=== PATIENT | male | born 1950 | race American Indian/Alaskan Native ===

== ENCOUNTER 2016-11-13 11:07 | Inpatient (IN) | payer MEDICARE ==
[2016-11-13 13:13] LABS: Basophils % (Auto) 0.3 % (0.0-1.8); Eosinophils % (Auto) 0.9 % (0.0-4.3); Mean Corpuscular HGB Conc 31 % (32-34); Mean Corpuscular Volume 81 fl (84-94); Platelet Count 186 K/mm3 (140-440); Red Blood Count 4.94 M/mm3 (3.65-5.03); Red Cell Distribution Width 15.2 % (13.2-15.2)
[2016-11-13 13:17] LABS: Hematocrit 40.1 % (35.5-45.6); Hemoglobin 12.2 gm/dl (11.8-15.2)
[2016-11-13 13:18] LABS: Mean Corpuscular Hemoglobin 25 pg (28-32)
--- NOTE | 2016-11-13 13:21 | XRay Report ---
CHEST X-RAY, 2 VIEWS History: Shortness of breath. Findings: There is mild cardiomegaly, mild pulmonary venous congestion and moderate bilateral pleural effusions. Compressive atelectasis is noted at the lung bases. The upper lung zones are clear. 3-lead cardiac device is in position. Impression: CHF.
[2016-11-13 13:23] LABS: INR 2.2 (0.87-1.13)
[2016-11-13 13:24] LABS: Partial Thromboplastin Time 36.6 Sec. (24.2-36.6)
[2016-11-13 13:25] LABS: Anion Gap 15 mmol/L; BUN/Creatinine Ratio 13.33; Blood Urea Nitrogen 12 mg/dL (9-20); Calcium 8.1 mg/dL (8.4-10.2); Carbon Dioxide 28 mmol/L (22-30); Chloride 101.7 mmol/L (98-107); Glucose 121 mg/dL (75-100); Potassium 4.6 mmol/L (3.6-5.0); Sodium 140 mmol/L (137-145)
[2016-11-13 13:27] LABS: Creatine Kinase MB 4.3 ng/mL (0.0-4.0)
[2016-11-13 13:28] LABS: Creatine Kinase 194 units/L (55-170)
[2016-11-13] MEDS ORDERED: LASIX IV ONE (16:10)
--- NOTE | 2016-11-13 16:40 | Admit Criteria Form ---
Admission Criteria Documentation: HEART FAILURE: COMMON COMPLICATIONS Clinical Indications for Inpatient Care (Place 'X' for any and all applicable criteria): Ongoing inpatient care may be indicated for heart failure with ANY ONE of the following (1)(2)(3)(4)(5): [ ]I. Ongoing need for care for primary condition requiring frequent therapy adjustments because of changes in cardiac function (eg, drug dosage changes for drugs that are renally metabolized) [ ]II. New-onset heart failure [ ]III. Heart failure with decreased urine output not responsive to attempts to optimize volume status [ ]IV. Acute cardiac ischemia causing or associated with failure [ X]V. Complications of heart failure, including ANY ONE of the following: [ ]a) Pericardial effusion [ ]b) Symptomatic pleural effusion [ ]c) O2 saturation <90% or PO2 < 60 mm Hg (8.0 kPa) on room air or require baseline supplemental O2 [X ]d) Tachypnea [ ]e) Dyspnea [ ]f) Syncope [ ]g) Change in mental status [ ]h) Acute renal insufficiency that is severe (reduction of more than 50% in estimated glomerular filtration rate from baseline) or progressive reduction of more than 25% in estimated glomerular filtration rate from baseline, with creatinine continuing to rise) [ ]i) Hemodynamic instability [ ]j) Anasarca [ ]k) Clinically significant metabolic abnormalities due to heart failure (eg, new-onset metabolic acidosis) Extended stay beyond goal length of stay for primary condition may be needed until ALL of the following are present(1)(3): [ ]a) Stable and effective diuretic regimen established (or patient on stable dialysis regimen if in chronic renal failure) [ ]b) Breathing comfortably at rest [ ]c) Saturation of arterial oxygen greater than 90% or at acceptable baseline [ ]d) Pulmonary edema absent or improved [ ]e) Hemodynamic stability [ ]f) Volume status acceptable on oral medication [ ]g) Peripheral or sacral edema absent or improved [ ]h) Renal function stable and manageable at a lower level of care [ ]i) Complications (eg, pleural effusion) resolved or manageable at a lower level of care [ ]j) Patient or caregiver has received written discharge instructions or educational material addressing activity level, diet, discharge medications, follow-up appointment, weight monitoring, and what to do if symptoms worsen The original [employer] content created by [employer] has been revised. The portions of the content which have been revised are identified through the use of italic text or in bold, and [facility] has neither reviewed nor approved the modified material.All other unmodified content is copyright [facility]. Please see references footnoted in the original [facility] edition 2016 Admission Criteria Met: Yes
--- NOTE | 2016-11-13 18:20 | Event Note ---
Date: 11/13/16 See H/p in reports GI Bleed=lower CHF exacerbation Afib HTN Hep C Glaucoma
[2016-11-13] MEDS ORDERED: ZOFRAN IV PRN (18:25)
[2016-11-13] MEDS ORDERED: DULCOLAX PR PRN (18:25)
[2016-11-13] MEDS ORDERED: TYLENOL PO PRN (18:25)
[2016-11-13] MEDS ORDERED: MILK OF MAGNESIA PO PRN (18:25)
[2016-11-13 19:37] LABS: Basophils % (Auto) 0.4 % (0.0-1.8); Eosinophils % (Auto) 1.4 % (0.0-4.3); Hematocrit 41.5 % (35.5-45.6); Mean Corpuscular HGB Conc 31 % (32-34); Mean Corpuscular Volume 79 fl (84-94); Platelet Count 194 K/mm3 (140-440); Red Blood Count 5.24 M/mm3 (3.65-5.03); Red Cell Distribution Width 15.3 % (13.2-15.2); White Blood Count 4.9 K/mm3 (4.5-11.0)
[2016-11-13 19:46] LABS: Alanine Aminotransferase 15 units/L (7-56); Albumin/Globulin Ratio 0.8 %; Alkaline Phosphatase 72 units/L (35-129); Anion Gap 14 mmol/L; BUN/Creatinine Ratio 13.33; Bilirubin,Total 0.4 mg/dL (0.1-1.2); Blood Urea Nitrogen 12 mg/dL (9-20); Calcium 8.2 mg/dL (8.4-10.2); Carbon Dioxide 30 mmol/L (22-30); Chloride 94.9 mmol/L (98-107); Glucose 108 mg/dL (75-100); Potassium 3.9 mmol/L (3.6-5.0); Sodium 135 mmol/L (137-145); Total Protein 6.9 g/dL (6.3-8.2)
[2016-11-13 19:48] LABS: Mean Corpuscular Hemoglobin 25 pg (28-32)
[2016-11-14] MEDS: DILAUDID IV PRN ×3 (01:27→21:49)
[2016-11-14 07:29] LABS: Mean Corpuscular HGB Conc 30 % (32-34); Mean Corpuscular Volume 81 fl (84-94); Platelet Count 186 K/mm3 (140-440); Red Blood Count 5.05 M/mm3 (3.65-5.03); Red Cell Distribution Width 15.5 % (13.2-15.2); White Blood Count 4.8 K/mm3 (4.5-11.0)
[2016-11-14 07:39] LABS: Hematocrit 40.8 % (35.5-45.6); Hemoglobin 12.4 gm/dl (11.8-15.2); Mean Corpuscular Hemoglobin 24 pg (28-32)
[2016-11-14 07:54] LABS: Anion Gap 15 mmol/L; BUN/Creatinine Ratio 13.33; Blood Urea Nitrogen 12 mg/dL (9-20); Calcium 8.4 mg/dL (8.4-10.2); Carbon Dioxide 29 mmol/L (22-30); Chloride 100.6 mmol/L (98-107); Glucose 110 mg/dL (75-100); Potassium 4.5 mmol/L (3.6-5.0); Sodium 140 mmol/L (137-145)
[2016-11-14 08:32] LABS: Anisocytosis 1+; Basophils % (Manual) 0 % (0.0-1.8); Blastocytes % (Manual) 0 %; Diff Status Complete; Eosinophils % (Manual) 0 % (0.0-4.3); Ovalocytes Few; Polychromasia Few; Stomatocytes Rare
--- NOTE | 2016-11-14 11:26 | Consultation ---
History of Present Illness Consult date: 11/14/16 Consult reason: shortness of breath History of present illness: The patient is a 65-year-old man with an extensive cardiac history, who was seen in our office yesterday at which time he was noted with shortness of breath and hypoxemia with oxygen saturation of 86% on room air. Due to this finding, he was referred to the emergency room for further evaluation. Workup in the emergency room included a chest x-ray, which on my review this morning reveals a large right pleural effusion, with some upper lobe cephalization suggesting underlying mild interstitial edema and heart failure. The patient has a history of coronary artery disease, aortic valve disease and a predominantly nonischemic cardiomyopathy. He has a mechanical aortic valve replacement and Coumadin therapy. He has coronary stents placed in the circumflex system, and most recent cardiac catheterization done 2 years ago revealed diffuse small vessel and nonobstructive large vessel disease that was recommended for medical therapy. Most recent echocardiogram done 2 months ago revealed a severe cardiomyopathy, ejection fraction 25-30%, well-functioning mechanical aortic valve, and severe pulmonary hypertension with primary artery systolic pressure 83. He has an implanted internal cardiac defibrillator for primary prevention of sudden cardiac . At this time, the patient denies chest pain, denies palpitations, but does have mild lower extremity edema in association with his presenting shortness of breath. It was also reported that on review of systems he stated that he had dark stools. However this was in association with recent constipation. He denies hematemesis and denies Katie stools. Most significantly, his hematocrit on presentation has been stable at 40-42. Past History Past Medical History: CAD, heart failure Past Surgical History: valve replacement, PTCA Medications and Allergies Allergies Allergy/AdvReac Type Severity Reaction Status Date / Time gentamicin [Gentamicin] Allergy Rash Verified 11/17/15 17:11 Home Medications Medication Instructions Recorded Confirmed Last Taken Type Carvedilol [Coreg] 3.125 mg PO BID 07/29/13 11/13/16 08/31/16 History Esomeprazole Magnesium [NexIUM] 40 mg PO DAILY 01/02/14 11/13/16 1 Day Ago History Latanoprost 0.005 drop OD DAILY 01/02/14 11/13/16 1 Day Ago History Losartan [Cozaar] 25 mg PO QDAY 08/31/16 11/13/16 08/31/16 History Potassium Chloride [K-Dur] 10 meq PO QDAY 08/31/16 11/13/16 08/31/16 History Warfarin Sodium [Coumadin] 6 mg PO QDAY 08/31/16 11/13/16 08/30/16 History Furosemide [Lasix TAB] 80 mg PO QDAY 11/13/16 11/13/16 Unknown History Active Meds: Active Medications Acetaminophen (Tylenol) 650 mg PO Q4H PRN PRN Reason: Pain MILD(1-3)/Fever >100.5/[place] Bisacodyl (Dulcolax) 10 mg GA QDAY PRN PRN Reason: Constipation unrelieved by MOM Hydromorphone HCl (Dilaudid) 0.5 mg IV Q3H PRN PRN Reason: Pain , Severe (7-10) Last Admin: 11/14/16 01:27 Dose: 0.5 mg Influenza Virus Vaccine Quadrival (Fluarix Quad [id number](36 Mos+)) 60 mcg IM .ONCE ONE Stop: 11/15/16 12:01 Magnesium Hydroxide (Milk Of Magnesia) 30 ml PO Q4H PRN PRN Reason: Constipation Ondansetron HCl (Zofran) 4 mg IV Q8H PRN PRN Reason: N/V unrelieved by Reglan Pneumococcal Polyvalent Vaccine (Pneumovax 23) 0.5 ml IM .ONCE ONE Stop: 11/15/16 12:01 Review of Systems Cardiovascular: edema, shortness of breath, no chest pain, no orthopnea, no palpitations, no rapid/irregular heart beat, no syncope, no lightheadedness Physical Examination Vital Signs Temp Pulse Resp BP Pulse Ox 98.1 F 78 20 115/92 94 11/13/16 11:40 11/13/16 11:40 11/13/16 11:40 11/13/16 11:40 11/13/16 11:40 General appearance: no acute distress HEENT: Positive: PERRL Neck: Positive: neck supple Cardiac: Positive: Reg Rate and Rhythm Lungs: Positive: Decreased Breath Sounds Neuro: Positive: Grossly Intact Abdomen: Positive: Soft Male genitourinary: Positive: deferred Skin: Positive: Clear Extremities: Present: +1 Edema Results 11/14/16 06:29 11/14/16 06:29 Cardiac Enzymes 11/13/16 Range/Units 19:09 AST 32 (5-40) units/L CBC 11/13/16 11/14/16 Range/Units 19:09 06:29 WBC 4.9 4.8 (4.5-11.0) K/mm3 RBC 5.24 H 5.05 H (3.65-5.03) M/mm3 Hgb 13.0 12.4 (11.8-15.2) gm/dl Hct 41.5 40.8 (35.5-45.6) % Plt Count 194 186 (140-440) K/mm3 Lymph # 0.5 L (1.2-5.4) K/mm3 [place] # 0.6 (0.0-0.8) K/mm3 Eos # 0.1 (0.0-0.4) K/mm3 Baso # 0.0 (0.0-0.1) K/mm3 Comprehensive Metabolic Panel 11/13/16 11/14/16 Range/Units 19:09 06:29 Sodium 135 L 140 (137-145) mmol/L Potassium 3.9 4.5 (3.6-5.0) mmol/L Chloride 94.9 L 100.6 (98-107) mmol/L Carbon Dioxide 30 29 (22-30) mmol/L BUN 12 12 (9-20) mg/dL Creatinine 0.9 0.9 (0.8-1.5) mg/dL Glucose 108 H 110 H (75-100) mg/dL Calcium 8.2 L 8.4 (8.4-10.2) mg/dL AST 32 (5-40) units/L ALT 15 (7-56) units/L Alkaline Phosphatase 72 (35-129) units/L Total Protein 6.9 (6.3-8.2) g/dL Albumin 3.0 L (3.9-5) g/dL EKG interpretations Pacemaker: ventricular pacing w/capt Assessment and Plan - Patient Problems (1) Pleural effusion Current Visit: Yes Status: Acute Plan to address problem: Patient's main pathology at this time is severe large right pleural effusion, likely responsible for his shortness of breath and his hypoxemia on presentation. I recommend that he is seen by pulmonary medicine for further evaluation in case a thoracentesis is needed. (2) CHF exacerbation Current Visit: No Status: Acute Qualifiers: Congestive heart failure type: unspecified congestive heart failure type Qualified Code(s): I50.9 - Heart failure, unspecified Plan to address problem: We will continue medical management for acute on chronic systolic heart failure , with diuretics, Ruben inhibitors and optimal medical therapy. If indicated, will place the patient on a trial of IV inotropic therapy. (3) Mechanical heart valve present Current Visit: No Status: Acute Plan to address problem: The patient has a mechanical aortic valve, current INR is 2.2 on Coumadin. Coumadin should be continued without interruption, unless a thoracentesis is needed and indicates temporary stoppage. We will discuss with pulmonary at that point. (4) GI bleed Current Visit: Yes Status: Acute Qualifiers: GI bleed type/associated pathology: G Gastritis type: G Plan to address problem: I do not see any clinical evidence of GI bleeding in this patient. Although he reports dark stools, his hematocrit is stable at over 40. It will be prudent to first get a stool guaiac prior to any other workup for GI bleeding. I will continue his Coumadin therapy at this point without interruption until there is further evidence of bleeding.
[2016-11-14] MEDS ORDERED: NON-FORMULARY (Esomeprazole Magnesium [Nexium] 40 MG) PO SCH (12:00)
[2016-11-14] MEDS ORDERED: WARFARIN SODIUM 6 MG PO SCH (12:00)
[2016-11-14] MEDS: LASIX IV SCH (12:45)
[2016-11-14] MEDS: K-DUR PO SCH (12:45)
[2016-11-14] MEDS: COZAAR PO SCH ×2 (12:46→13:08)
[2016-11-14] MEDS: PROTONIX PO SCH (13:06)
[2016-11-14 14:16] LABS: INR 2.11 (0.87-1.13)
--- NOTE | 2016-11-14 14:40 | Consultation ---
History of Present Illness Consult date: 11/14/16 Requesting physician: MARTHA MADDEN Reason for consult: pleural effusion History of present illness: 65 y/o male with known systolic heart failure admitted with worsening dyspnea on exertion and hypoxemia. Referred from cardiology. Has a sat of 86% on room air. CXR shows bilateral pleural effusions worse than effusions from August. Pulmonary consulted for need of possible thoracentesis. Of note, patient on coumadin for aortic valve and is currently therapeutic on this. Past History Past Medical History: CAD, heart failure Past Surgical History: valve replacement, PTCA Medications and Allergies Allergies Allergy/AdvReac Type Severity Reaction Status Date / Time gentamicin [Gentamicin] Allergy Rash Verified 11/17/15 17:11 Home Medications Medication Instructions Recorded Confirmed Last Taken Type Carvedilol [Coreg] 3.125 mg PO BID 07/29/13 11/13/16 08/31/16 History Esomeprazole Magnesium [NexIUM] 40 mg PO DAILY 01/02/14 11/13/16 1 Day Ago History Latanoprost 0.005 drop OD DAILY 01/02/14 11/13/16 1 Day Ago History Losartan [Cozaar] 25 mg PO QDAY 08/31/16 11/13/16 08/31/16 History Potassium Chloride [K-Dur] 10 meq PO QDAY 08/31/16 11/13/16 08/31/16 History Warfarin Sodium [Coumadin] 6 mg PO QDAY 08/31/16 11/13/16 08/30/16 History Furosemide [Lasix TAB] 80 mg PO QDAY 11/13/16 11/13/16 Unknown History Active Meds: Active Medications Acetaminophen (Tylenol) 650 mg PO Q4H PRN PRN Reason: Pain MILD(1-3)/Fever >100.5/[place] Bisacodyl (Dulcolax) 10 mg CO QDAY PRN PRN Reason: Constipation unrelieved by MOM Furosemide (Lasix) 40 mg IV QDAY [facility] Last Admin: 11/14/16 12:45 Dose: 40 mg Hydromorphone HCl (Dilaudid) 0.5 mg IV Q3H PRN PRN Reason: Pain , Severe (7-10) Last Admin: 11/14/16 01:27 Dose: 0.5 mg Influenza Virus Vaccine Quadrival (Fluarix Quad [id number](36 Mos+)) 60 mcg IM .ONCE ONE Stop: 11/15/16 12:01 Latanoprost (Xalatan 0.005%) 1 drops OD QPM [facility] Losartan Potassium (Cozaar) 25 mg PO QDAY [facility] Last Admin: 11/14/16 13:08 Dose: Not Given Magnesium Hydroxide (Milk Of Magnesia) 30 ml PO Q4H PRN PRN Reason: Constipation Miscellaneous Medication (Warfarin Sodium [Coumadin]) 6 mg PO QDAY [facility] Ondansetron HCl (Zofran) 4 mg IV Q8H PRN PRN Reason: N/V unrelieved by Regrani Pantoprazole Sodium (Protonix) 40 mg PO DAILY [facility] Last Admin: 11/14/16 13:06 Dose: 40 mg Pneumococcal Polyvalent Vaccine (Pneumovax 23) 0.5 ml IM .ONCE ONE Stop: 11/15/16 12:01 Potassium Chloride (K-Dur) 10 meq PO QDAY [facility] Last Admin: 11/14/16 12:45 Dose: 10 meq Warfarin Sodium (Coumadin Pharmacy To Dose) 1 each PO PKCONSULT [facility] PRN Reason: Protocol Physical Examination Vital signs: Vital Signs Temp Pulse Resp BP Pulse Ox 98.1 F 78 20 115/92 94 11/13/16 11:40 11/13/16 11:40 11/13/16 11:40 11/13/16 11:40 11/13/16 11:40 Results - Laboratory Findings CBC and BMP: 11/14/16 06:29 11/14/16 06:29 PT/INR, D-dimer PT 23.7 Sec. (12.2-14.9) H 11/14/16 12:48 INR 2.11 (0.87-1.13) H 11/14/16 12:48 Abnormal lab findings: Abnormal Labs 11/13/16 11/13/16 11/14/16 19:09 19:09 06:29 RBC 5.24 H 5.05 H MCV 79 L 81 L MCH 25 L 24 L MCHC 31 L 30 L RDW 15.3 H 15.5 H Lymph % (Auto) 11.1 L [place] % (Auto) 12.6 H Lymph # 0.5 L Seg Neutrophils % 74.5 H Seg Neuts % (Manual) 78.0 H Lymphocytes % (Manual) 7.0 L Monocytes % (Manual) 13.0 H Lymphocytes # (Manual) 0.3 L PT INR Sodium 135 L Chloride 94.9 L Glucose 108 H Calcium 8.2 L Albumin 3.0 L 11/14/16 11/14/16 06:29 12:48 RBC MCV MCH MCHC RDW Lymph % (Auto) [place] % (Auto) Lymph # Seg Neutrophils % Seg Neuts % (Manual) Lymphocytes % (Manual) Monocytes % (Manual) Lymphocytes # (Manual) PT 23.7 H INR 2.11 H Sodium Chloride Glucose 110 H Calcium Albumin Assessment and Plan 65 y/o male with known systolic heart failure admitted with dyspnea on exertion and hypoxemia. 1. At this point, could perform thoracentesis but patient would need to be off coumadin. If the risks outweigh the benefits, will ask cardiology to change anticoagulation to something that is more short acting to give IR the time to perform the procedure. Ideally given the elevated BNP and known systolic heart failure, would attempt aggressive diuresis first to see if this helps with pleural effusions. Will discuss with Dr. Mdaden.
[2016-11-14] MEDS ORDERED: COUMADIN PO SCH (17:00)
--- NOTE | 2016-11-14 17:15 | Gastroenterology Consultation ---
History of Present Illness - Reason for Consult Consult date: 11/14/16 Rectal bleeding Requesting physician: GABY MADRIGAL - History of Present Illness Asked to evaluate this pleasant 65yo man for rectal bleeding. He is currently hospitalized with a CHF exacerbation. 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 He has an ICD in place as well. He mentions that his stools have been dark intermittently. He was seen in 05/2016 by my colleague, Dr. Marina Craft , who performed an EGD which revealed a superficial ulcer in the stomach. He mentions that he was taking Nexium. No current NSAID usage. Hb has been 12.2- 13.0 during this admission. Currently, he states that his stools are brown. No vomiting, abdominal pain, CP at this time. He attests to mild SOB. No other complaints. Past History Past Medical History: CAD, heart failure Past Surgical History: valve replacement, PTCA Social history: Family history: no significant family history Medications and Allergies Allergies Allergy/AdvReac Type Severity Reaction Status Date / Time gentamicin [Gentamicin] Allergy Rash Verified 11/17/15 17:11 Home Medications Medication Instructions Recorded Confirmed Last Taken Type Carvedilol [Coreg] 3.125 mg PO BID 07/29/13 11/13/16 08/31/16 History Esomeprazole Magnesium [NexIUM] 40 mg PO DAILY 01/02/14 11/13/16 1 Day Ago History Latanoprost 0.005 drop OD DAILY 01/02/14 11/13/16 1 Day Ago History Losartan [Cozaar] 25 mg PO QDAY 08/31/16 11/13/16 08/31/16 History Potassium Chloride [K-Dur] 10 meq PO QDAY 08/31/16 11/13/16 08/31/16 History Warfarin Sodium [Coumadin] 6 mg PO QDAY 08/31/16 11/13/16 08/30/16 History Furosemide [Lasix TAB] 80 mg PO QDAY 11/13/16 11/13/16 Unknown History Active Meds: Active Medications Acetaminophen (Tylenol) 650 mg PO Q4H PRN PRN Reason: Pain MILD(1-3)/Fever >100.5/[place] Bisacodyl (Dulcolax) 10 mg SD QDAY PRN PRN Reason: Constipation unrelieved by MOM Furosemide (Lasix) 40 mg IV QDAY [facility] Last Admin: 11/14/16 12:45 Dose: 40 mg Hydromorphone HCl (Dilaudid) 0.5 mg IV Q3H PRN PRN Reason: Pain , Severe (7-10) Last Admin: 11/14/16 15:22 Dose: 0.5 mg Influenza Virus Vaccine Quadrival (Fluarix Quad [id number](36 Mos+)) 60 mcg IM .ONCE ONE Stop: 11/15/16 12:01 Latanoprost (Xalatan 0.005%) 1 drops OD QPM [facility] Losartan Potassium (Cozaar) 25 mg PO QDAY [facility] Last Admin: 11/14/16 13:08 Dose: Not Given Magnesium Hydroxide (Milk Of Magnesia) 30 ml PO Q4H PRN PRN Reason: Constipation Ondansetron HCl (Zofran) 4 mg IV Q8H PRN PRN Reason: N/V unrelieved by Reglan Pantoprazole Sodium (Protonix) 40 mg PO DAILY [facility] Last Admin: 11/14/16 13:06 Dose: 40 mg Pneumococcal Polyvalent Vaccine (Pneumovax 23) 0.5 ml IM .ONCE ONE Stop: 11/15/16 12:01 Potassium Chloride (K-Dur) 10 meq PO QDAY [facility] Last Admin: 11/14/16 12:45 Dose: 10 meq Warfarin Sodium (Coumadin Pharmacy To Dose) 1 each PO PKCONSULT [facility] PRN Reason: Protocol Warfarin Sodium (Coumadin) 6 mg PO DAILY@1700 [facility] Last Admin: 11/14/16 16:47 Dose: 6 mg Review of Systems - Review of Systems All systems: negative (SOB/GONZÁLES, intermittent dark stools) Exam - Constitutional Vital Signs: Temp Pulse Resp BP Pulse Ox 98.2 F 79 18 133/87 98 11/14/16 15:49 11/14/16 15:49 11/14/16 15:49 11/14/16 15:49 11/14/16 16:37 General appearance: no acute distress - Neck Neck: supple - Respiratory Respiratory: bilateral: diminished - Cardiovascular Rhythm: regular Heart Sounds: Present: S1 & S2 Extremity abnormal: edema (1+ pedal) - Gastrointestinal General gastrointestinal: Present: soft, non-tender, non-distended, normal bowel sounds - Neurologic Neurological: alert and oriented x3 - Psychiatric Psychiatric: appropriate mood/affect - Labs CBC & Chem 7: 11/14/16 06:29 11/14/16 06:29 Lab Results: Laboratory Results - last 24 hr 11/13/16 11/13/16 11/13/16 19:09 19:09 19:09 WBC 4.9 RBC 5.24 H Hgb 13.0 Hct 41.5 MCV 79 L MCH 25 L MCHC 31 L RDW 15.3 H Plt Count 194 Lymph % (Auto) 11.1 L [place] % (Auto) 12.6 H Eos % (Auto) 1.4 Baso % (Auto) 0.4 Lymph # 0.5 L [place] # 0.6 Eos # 0.1 Baso # 0.0 Add Manual Diff Total Counted Seg Neutrophils % 74.5 H Seg Neuts % (Manual) Band Neutrophils % Lymphocytes % (Manual) Reactive Lymphs % (Man) Monocytes % (Manual) Eosinophils % (Manual) Basophils % (Manual) Metamyelocytes % Myelocytes % Promyelocytes % Blast Cells % Nucleated RBC % Seg Neutrophils # 3.7 Seg Neutrophils # Man Band Neutrophils # Lymphocytes # (Manual) Abs React Lymphs (Man) Monocytes # (Manual) Eosinophils # (Manual) Basophils # (Manual) Metamyelocytes # Myelocytes # Promyelocytes # Blast Cells # WBC Morphology Hypersegmented Neuts Hyposegmented Neuts Hypogranular Neuts Smudge Cells Toxic Granulation Toxic Vacuolation Dohle Bodies Pelger-Huet Anomaly Cuauhtemoc Rods Platelet Estimate Clumped Platelets Plt Clumps, EDTA Large Platelets Giant Platelets Platelet Satelliting Plt Morphology Comment RBC Morphology Dimorphic RBCs Polychromasia Hypochromasia Poikilocytosis Anisocytosis Microcytosis Macrocytosis Spherocytes Pappenheimer Bodies Sickle Cells Target Cells Tear Drop Cells Ovalocytes Stomatocytes Helmet Cells Garcia-Ucon Bodies [place] Rings [place] Cells Bite Cells Crenated Cell Elliptocytes Acanthocytes (Spur) Rouleaux Hemoglobin C Crystals Schistocytes Malaria parasites Rom Bodies Hem Pathologist Commnt PT INR Sodium 135 L Potassium 3.9 Chloride 94.9 L Carbon Dioxide 30 Anion Gap 14 BUN 12 Creatinine 0.9 Estimated GFR > 60 BUN/Creatinine Ratio 13.33 Glucose 108 H Hemoglobin A1c 6.0 Calcium 8.2 L Total Bilirubin 0.4 AST 32 ALT 15 Alkaline Phosphatase 72 Total Protein 6.9 Albumin 3.0 L Albumin/Globulin Ratio 0.8 11/14/16 11/14/16 11/14/16 06:29 06:29 12:48 WBC 4.8 RBC 5.05 H Hgb 12.4 Hct 40.8 MCV 81 L MCH 24 L MCHC 30 L RDW 15.5 H Plt Count 186 Lymph % (Auto) [place] % (Auto) [employer] Eos % (Auto) Baso % (Auto) Lymph # [place] # Eos # Baso # Add Manual Diff Complete Total Counted 100 Seg Neutrophils % Seg Neuts % (Manual) 78.0 H Band Neutrophils % 0 Lymphocytes % (Manual) 7.0 L Reactive Lymphs % (Man) 2.0 Monocytes % (Manual) 13.0 H Eosinophils % (Manual) 0 Basophils % (Manual) 0 Metamyelocytes % 0 Myelocytes % 0 Promyelocytes % 0 Blast Cells % 0 Nucleated RBC % Not Reportable Seg Neutrophils # Seg Neutrophils # Man 3.7 Band Neutrophils # 0.0 Lymphocytes # (Manual) 0.3 L Abs React Lymphs (Man) 0.1 Monocytes # (Manual) 0.6 Eosinophils # (Manual) 0.0 Basophils # (Manual) 0.0 Metamyelocytes # 0.0 Myelocytes # 0.0 Promyelocytes # 0.0 Blast Cells # 0.0 WBC Morphology Not Reportable Hypersegmented Neuts Not Reportable Hyposegmented Neuts Not Reportable Hypogranular Neuts Not Reportable Smudge Cells Not Reportable Toxic Granulation Not Reportable Toxic Vacuolation Not Reportable Dohle Bodies Not Reportable Pelger-Huet Anomaly Not Reportable Cuauhtemoc Rods Not Reportable Platelet Estimate Appears normal Clumped Platelets Not Reportable Plt Clumps, EDTA Not Reportable Large Platelets Not Reportable Giant Platelets Not Reportable Platelet Satelliting Not Reportable Plt Morphology Comment Not Reportable RBC Morphology Not Reportable Dimorphic RBCs Not Reportable Polychromasia Few Hypochromasia Not Reportable Poikilocytosis Not Reportable Anisocytosis 1+ Microcytosis Not Reportable Macrocytosis Not Reportable Spherocytes Not Reportable Pappenheimer Bodies Not Reportable Sickle Cells Not Reportable Target Cells Not Reportable Tear Drop Cells Not Reportable Ovalocytes Few Stomatocytes Rare Helmet Cells Not Reportable Garcia-Ucon Bodies Not Reportable [place] Rings Not Reportable [place] Cells Not Reportable Bite Cells Not Reportable Crenated Cell Not Reportable Elliptocytes Not Reportable Acanthocytes (Spur) Not Reportable Rouleaux Not Reportable Hemoglobin C Crystals Not Reportable Schistocytes Not Reportable Malaria parasites Not Reportable Rom Bodies Not Reportable Hem Pathologist Commnt No PT 23.7 H INR 2.11 H Sodium 140 Potassium 4.5 Chloride 100.6 Carbon Dioxide 29 Anion Gap 15 BUN 12 Creatinine 0.9 Estimated GFR > 60 BUN/Creatinine Ratio 13.33 Glucose 110 H Hemoglobin A1c Calcium 8.4 Total Bilirubin AST ALT Alkaline Phosphatase Total Protein Albumin Albumin/Globulin Ratio - Imaging X-ray: report reviewed (c/w CHF) Assessment and Plan 65yo man with the above medical hx, with intermittent dark stools. This is rather non-specific and he does not appear to be bleeding at this point. His Hb has remained stable. Rec: 1) Continue current PPI 2) Monitor Hb 3) If he overtly bleeds, would then consider EGD, but would not recommend EGD at this point in time Please re-call with any further questions. Thank you!
--- NOTE | 2016-11-14 22:15 | History and Physical Report ---
CHIEF COMPLAINT: 1. Melena, melanotic stools. 2. Shortness of breath on minimal exertion, at rest. HISTORY OF PRESENT ILLNESS: A 65-year-old male presents to the ER for melanotic stools and increasing shortness of breath on minimal exertion. The patient does not have chest pain. 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 Also, the chest x-ray showed a large right pleural effusion with some upper lobe cephalization. The patient has history of coronary artery disease, aortic valve disease and nonischemic cardiomyopathy. He has a mechanical aortic valve and was on Coumadin therapy. Also, has coronary stents and cardiac catheterization recently. His ejection fraction was 25-50%. The patient has noted dark stools for 1 day, but the patient is not lightheaded or had syncope. PAST MEDICAL HISTORY: As mentioned, hypertension, CHF, aortic valve repair, and coronary artery disease. CURRENT MEDICATIONS: Coreg 3.125 b.i.d., Nexium 40 mg p.o. daily, Latanoprost 0.005 drops daily, losartan 25 mg daily, potassium 10 mEq daily, Coumadin 6 mg p.o. daily, Lasix 80 mg p.o. daily. PAST SURGICAL HISTORY: Aortic valve replacement and PTCA with stents. FAMILY HISTORY: Significant for hypertension. SOCIAL HISTORY: Does not smoke. No alcohol, no recreational drugs. REVIEW OF SYSTEMS: Significant for; CONSTITUTIONAL: No weight loss, no weight gain. HEENT: No sore throat, no postnasal drip. CARDIOVASCULAR: No chest pain, no palpitations. RESPIRATORY: Shortness of breath on minimal exertion present. No cough. GASTROINTESTINAL: Melanotic stools present. No epigastric pain. GENITOURINARY: No dysuria, no flank pain. MUSCULOSKELETAL: No joint pains. CENTRAL NERVOUS SYSTEM: No syncope, no seizures. PHYSICAL EXAMINATION: GENERAL: Elderly male, cooperative during examination, cheerful. VITAL SIGNS: Blood pressure is 115/92, respirations are 20, pulse is 78, temperature is 98.1. HEENT: Unremarkable. Pupils are equal and reactive. NECK: Supple neck. No lymphadenopathy, no thyromegaly. LUNGS: Clear to auscultation and percussion. Good air entry. CARDIOVASCULAR: S1, S2 heard. No gallop, no murmur, no rub. Apical impulse in left fifth intercostal space in midclavicular line. ABDOMEN: Soft and benign. No hepatosplenomegaly. No guarding, no rigidity. Hernial orifices are normal. EXTREMITIES: Good pedal pulses. No pedal edema. RECTAL: Occult blood positive on the rectal exam. SKIN: Normal. LABORATORY DATA: Significant for a hemoglobin of 12.4 and hematocrit of 40.8. BUN and creatinine are 12 and 0.9. EKG shows normal sinus rhythm. ASSESSMENT AND PLAN: 1. Lower gastrointestinal bleed. GI evaluation. The patient is on Protonix. The patient to get a GI consult. 2. Congestive heart failure exacerbation. We will continue Lasix and get Cardiology involved. 3. Mechanical heart valve. Coumadin to be continued as per Cardiology. 4. Right pleural effusion. Thoracenteses if necessary. 5. Deep venous thrombosis prophylaxis. The patient on Coumadin and therapeutic. GI consult to be followed. JOB# [id number] KERRY/NADINE
--- NOTE | 2016-11-15 03:58 | Progress Note ---
Assessment and Plan - Patient Problems (1) Acute respiratory failure with hypoxemia Current Visit: Yes Status: Acute Plan to address problem: supplemental oxygen, negs, aspiration precautions, pulmonary toilet, diuretic therapy, pulmonary consulted, wean oxygen as tolerate, monitor Sao2 (2) Recurrent right pleural effusion Current Visit: Yes Status: Acute Plan to address problem: Pulmonary consulted, diuretic therapy, supportive care, treat CHF, (3) CHF exacerbation Current Visit: No Status: Acute Qualifiers: Congestive heart failure type: unspecified congestive heart failure type Qualified Code(s): I50.9 - Heart failure, unspecified Plan to address problem: Cardiology consulted: CHF protocol, fluid restriction, low sodium diet, monitor uop w shift, daily weight, diuretic therapy, (4) Hypertension Current Visit: No Status: Acute Qualifiers: Hypertension type: H Plan to address problem: monitor bp q shift, continue current care (5) S/P AVR (aortic valve replacement) Current Visit: No Status: Acute Plan to address problem: continue current anticoagulation, (6) DVT prophylaxis Current Visit: Yes Status: Acute History Interval history: Pt resting comfortably in bed, Pt denies pain. Pt states that his breathing is better, Pt denies loose stools, or dark stools overnight. No reported nursing events. Pt denies CP, Palpitations, NVD. Hospitalist Physical - Constitutional Vitals: Temp Pulse Resp BP Pulse Ox 98.3 F 70 20 134/82 98 11/15/16 00:00 11/15/16 00:00 11/15/16 00:00 11/15/16 00:00 11/15/16 00:00 General appearance: Present: no acute distress - EENT Eyes: Present: PERRL ENT: hearing intact - Neck Neck: Present: supple - Respiratory Respiratory: bilateral: diminished - Cardiovascular Rhythm: irregularly irregular - Extremities Extremities: no ischemia Extremity abnormal: edema - Abdominal General gastrointestinal: soft, non-tender, non-distended - Integumentary Integumentary: Present: clear, dry - Psychiatric Psychiatric: appropriate mood/affect, cooperative - Neurologic Neurologic: CNII-XII intact Results - Labs CBC & Chem 7: 11/14/16 06:29 11/14/16 06:29 Labs: Laboratory Last Values WBC 4.8 K/mm3 (4.5-11.0) 11/14/16 06:29 RBC 5.05 M/mm3 (3.65-5.03) H 11/14/16 06:29 Hgb 12.4 gm/dl (11.8-15.2) 11/14/16 06:29 Hct 40.8 % (35.5-45.6) 11/14/16 06:29 MCV 81 fl (84-94) L 11/14/16 06:29 MCH 24 pg (28-32) L 11/14/16 06:29 MCHC 30 % (32-34) L 11/14/16 06:29 RDW 15.5 % (13.2-15.2) H 11/14/16 06:29 Plt Count 186 K/mm3 (140-440) 11/14/16 06:29 Lymph % (Auto) 11.1 % (13.4-35.0) L 11/13/16 19:09 [place] % (Auto) Radiation Physicist 11/14/16 06:29 Eos % (Auto) 1.4 % (0.0-4.3) 11/13/16 19:09 Baso % (Auto) 0.4 % (0.0-1.8) 11/13/16 19:09 Lymph # 0.5 K/mm3 (1.2-5.4) L 11/13/16 19:09 [place] # 0.6 K/mm3 (0.0-0.8) 11/13/16 19:09 Eos # 0.1 K/mm3 (0.0-0.4) 11/13/16 19:09 Baso # 0.0 K/mm3 (0.0-0.1) 11/13/16 19:09 Add Manual Diff Complete 11/14/16 06:29 Total Counted 100 11/14/16 06:29 Seg Neutrophils % 74.5 % (40.0-70.0) H 11/13/16 19:09 Seg Neuts % (Manual) 78.0 % (40.0-70.0) H 11/14/16 06:29 Band Neutrophils % 0 % 11/14/16 06:29 Lymphocytes % (Manual) 7.0 % (13.4-35.0) L 11/14/16 06:29 Reactive Lymphs % (Man) 2.0 % 11/14/16 06:29 Monocytes % (Manual) 13.0 % (0.0-7.3) H 11/14/16 06:29 Eosinophils % (Manual) 0 % (0.0-4.3) 11/14/16 06:29 Basophils % (Manual) 0 % (0.0-1.8) 11/14/16 06:29 Metamyelocytes % 0 % 11/14/16 06:29 Myelocytes % 0 % 11/14/16 06:29 Promyelocytes % 0 % 11/14/16 06:29 Blast Cells % 0 % 11/14/16 06:29 Nucleated RBC % Not Reportable 11/14/16 06:29 Seg Neutrophils # 3.7 K/mm3 (1.8-7.7) 11/13/16 19:09 Seg Neutrophils # Man 3.7 K/mm3 (1.8-7.7) 11/14/16 06:29 Band Neutrophils # 0.0 K/mm3 11/14/16 06:29 Lymphocytes # (Manual) 0.3 K/mm3 (1.2-5.4) L 11/14/16 06:29 Abs React Lymphs (Man) 0.1 K/mm3 11/14/16 06:29 Monocytes # (Manual) 0.6 K/mm3 (0.0-0.8) 11/14/16 06:29 Eosinophils # (Manual) 0.0 K/mm3 (0.0-0.4) 11/14/16 06:29 Basophils # (Manual) 0.0 K/mm3 (0.0-0.1) 11/14/16 06:29 Metamyelocytes # 0.0 K/mm3 11/14/16 06:29 Myelocytes # 0.0 K/mm3 11/14/16 06:29 Promyelocytes # 0.0 K/mm3 11/14/16 06:29 Blast Cells # 0.0 K/mm3 11/14/16 06:29 WBC Morphology Not Reportable 11/14/16 06:29 Hypersegmented Neuts Not Reportable 11/14/16 06:29 Hyposegmented Neuts Not Reportable 11/14/16 06:29 Hypogranular Neuts Not Reportable 11/14/16 06:29 Smudge Cells Not Reportable 11/14/16 06:29 Toxic Granulation Not Reportable 11/14/16 06:29 Toxic Vacuolation Not Reportable 11/14/16 06:29 Dohle Bodies Not Reportable 11/14/16 06:29 Pelger-Huet Anomaly Not Reportable 11/14/16 06:29 Cuauhtemoc Rods Not Reportable 11/14/16 06:29 Platelet Estimate Appears normal 11/14/16 06:29 Clumped Platelets Not Reportable 11/14/16 06:29 Plt Clumps, EDTA Not Reportable 11/14/16 06:29 Large Platelets Not Reportable 11/14/16 06:29 Giant Platelets Not Reportable 11/14/16 06:29 Platelet Satelliting Not Reportable 11/14/16 06:29 Plt Morphology Comment Not Reportable 11/14/16 06:29 RBC Morphology Not Reportable 11/14/16 06:29 Dimorphic RBCs Not Reportable 11/14/16 06:29 Polychromasia Few 11/14/16 06:29 Hypochromasia Not Reportable 11/14/16 06:29 Poikilocytosis Not Reportable 11/14/16 06:29 Anisocytosis 1+ 11/14/16 06:29 Microcytosis Not Reportable 11/14/16 06:29 Macrocytosis Not Reportable 11/14/16 06:29 Spherocytes Not Reportable 11/14/16 06:29 Pappenheimer Bodies Not Reportable 11/14/16 06:29 Sickle Cells Not Reportable 11/14/16 06:29 Target Cells Not Reportable 11/14/16 06:29 Tear Drop Cells Not Reportable 11/14/16 06:29 Ovalocytes Few 11/14/16 06:29 Stomatocytes Rare 11/14/16 06:29 Helmet Cells Not Reportable 11/14/16 06:29 [place] Bodies Not Reportable 11/14/16 06:29 [place] Rings Not Reportable 11/14/16 06:29 [place] Cells Not Reportable 11/14/16 06:29 Bite Cells Not Reportable 11/14/16 06:29 Crenated Cell Not Reportable 11/14/16 06:29 Elliptocytes Not Reportable 11/14/16 06:29 Acanthocytes (Spur) Not Reportable 11/14/16 06:29 Rouleaux Not Reportable 11/14/16 06:29 Hemoglobin C Crystals Not Reportable 11/14/16 06:29 Schistocytes Not Reportable 11/14/16 06:29 Malaria parasites Not Reportable 11/14/16 06:29 Rom Bodies Not Reportable 11/14/16 06:29 Hem Pathologist Commnt No 11/14/16 06:29 PT 23.7 Sec. (12.2-14.9) H 11/14/16 12:48 INR 2.11 (0.87-1.13) H 11/14/16 12:48 APTT 36.6 Sec. (24.2-36.6) 11/13/16 12:49 Sodium 140 mmol/L (137-145) 11/14/16 06:29 Potassium 4.5 mmol/L (3.6-5.0) 11/14/16 06:29 Chloride 100.6 mmol/L (98-107) 11/14/16 06:29 Carbon Dioxide 29 mmol/L (22-30) 11/14/16 06:29 Anion Gap 15 mmol/L 11/14/16 06:29 BUN 12 mg/dL (9-20) 11/14/16 06:29 Creatinine 0.9 mg/dL (0.8-1.5) 11/14/16 06:29 Estimated GFR > 60 ml/min 11/14/16 06:29 BUN/Creatinine Ratio 13.33 % 11/14/16 06:29 Glucose 110 mg/dL (75-100) H 11/14/16 06:29 Hemoglobin A1c 6.0 % (4-6) 11/13/16 19:09 Calcium 8.4 mg/dL (8.4-10.2) 11/14/16 06:29 Total Bilirubin 0.4 mg/dL (0.1-1.2) 11/13/16 19:09 AST 32 units/L (5-40) 11/13/16 19:09 ALT 15 units/L (7-56) 11/13/16 19:09 Alkaline Phosphatase 72 units/L (35-129) 11/13/16 19:09 Total Creatine Kinase 194 units/L (55-170) H 11/13/16 12:49 CK-MB (CK-2) 4.3 ng/mL (0.0-4.0) H 11/13/16 12:49 CK-MB (CK-2) Rel Index 2.2 (0-4) 11/13/16 12:49 Troponin T < 0.010 ng/mL (0.00-0.029) 11/13/16 12:49 NT-Pro-B Natriuret Pep 2419 pg/mL (0-900) H 11/13/16 12:49 Total Protein 6.9 g/dL (6.3-8.2) 11/13/16 19:09 Albumin 3.0 g/dL (3.9-5) L 11/13/16 19:09 Albumin/Globulin Ratio 0.8 % 11/13/16 19:09 Blood Type B POSITIVE 11/13/16 12:49 Antibody Screen Negative 11/13/16 12:49
[2016-11-15 06:21] LABS: INR 1.85 (0.87-1.13)
[2016-11-15] MEDS: COZAAR PO SCH (09:25)
[2016-11-15] MEDS: K-DUR PO SCH (09:25)
[2016-11-15] MEDS: LASIX IV SCH ×2 (09:25→17:28)
[2016-11-15] MEDS: PROTONIX PO SCH (09:26)
--- NOTE | 2016-11-15 09:45 | Progress Note ---
Assessment and Plan Pleural effusion CHF exacerbation, systolic Hx of coronary artery disease Hx of predominantly nonischemic cardiomyopathy Hx of mechanical aortic valve replacement on Coumadin therapy. Presence of AICD Echocardiogram done 2 months ago revealed a severe cardiomyopathy, ejection fraction 25-30%, well-functioning mechanical aortic valve, and severe pulmonary hypertension with primary artery systolic pressure 83. Subjective Date of service: 11/15/16 Interval history: Patient reports shortness of breath is less. Objective Vital Signs Temp Pulse Pulse Resp BP Pulse Ox 11/15/16 08:35 98.6 F 72 18 103/64 94 11/15/16 00:00 98.3 F 70 20 134/82 98 11/14/16 21:49 18 11/14/16 21:15 93 11/14/16 16:37 98 11/14/16 15:49 98.2 F 79 18 133/87 99 11/14/16 13:08 75 - Physical Examination General: No Apparent Distress HEENT: Positive: PERRL Neck: Positive: neck supple Cardiac: Positive: Other (ventricular paced) Lungs: Positive: Decreased Breath Sounds Neuro: Positive: Grossly Intact Extremities: Present: +1 Edema - Labs and Meds Coagulation 11/14/16 11/15/16 Range/Units 12:48 05:35 PT 23.7 H 21.3 H (12.2-14.9) Sec. INR 2.11 H 1.85 H (0.87-1.13) Pacemaker: ventricular pacing w/capt
[2016-11-15] MEDS ORDERED: PNEUMOVAX 23 IM ONE (12:00)
[2016-11-15] MEDS ORDERED: FLUARIX QUAD 2016-2017(36 MOS+) IM ONE (12:00)
[2016-11-15] MEDS: PRIMACOR 20 MG in D5W 80 ML IV SCH ×2 (14:44→23:17)
--- NOTE | 2016-11-15 14:59 | Progress Note ---
Assessment and Plan 65 y/o male with known systolic heart failure admitted with dyspnea on exertion and hypoxemia. 1. Cards to attempt some inotropic support. Will repeat CXR after 24 hours of therapy. 2. Hold on thoracentesis for now. Subjective Date of service: 11/15/16 Interval history: no acute events. discussed patient with cards this am in ICU. Objective Vital Signs - 12hr 11/15/16 11/15/16 08:35 14:40 Temperature 98.6 F Pulse Rate [ 72 Left Radial] Respiratory 18 Rate Blood Pressure 103/64 [Left Arm] O2 Sat by Pulse 94 100 Oximetry CBC and BMP: 11/14/16 06:29 11/14/16 06:29 ABG, PT/INR, D-dimer: PT/INR, D-dimer PT 21.3 Sec. (12.2-14.9) H 11/15/16 05:35 INR 1.85 (0.87-1.13) H 11/15/16 05:35 Abnormal lab findings: Abnormal Labs 11/13/16 11/13/16 11/14/16 19:09 19:09 06:29 RBC 5.24 H 5.05 H MCV 79 L 81 L MCH 25 L 24 L MCHC 31 L 30 L RDW 15.3 H 15.5 H Lymph % (Auto) 11.1 L [place] % (Auto) 12.6 H Lymph # 0.5 L Seg Neutrophils % 74.5 H Seg Neuts % (Manual) 78.0 H Lymphocytes % (Manual) 7.0 L Monocytes % (Manual) 13.0 H Lymphocytes # (Manual) 0.3 L PT INR Sodium 135 L Chloride 94.9 L Glucose 108 H Calcium 8.2 L Albumin 3.0 L 11/14/16 11/14/16 11/15/16 06:29 12:48 05:35 RBC MCV MCH MCHC RDW Lymph % (Auto) [place] % (Auto) Lymph # Seg Neutrophils % Seg Neuts % (Manual) Lymphocytes % (Manual) Monocytes % (Manual) Lymphocytes # (Manual) PT 23.7 H 21.3 H INR 2.11 H 1.85 H Sodium Chloride Glucose 110 H Calcium Albumin
[2016-11-15] MEDS: COUMADIN PO SCH (17:27)
[2016-11-15] MEDS: XALATAN 0.005% OD SCH (18:51)
--- NOTE | 2016-11-15 23:12 | Progress Note ---
Assessment and Plan - Patient Problems (1) Acute respiratory failure with hypoxemia Current Visit: Yes Status: Acute Plan to address problem: supplemental oxygen, negs, aspiration precautions, pulmonary toilet, diuretic therapy, pulmonary consulted, wean oxygen as tolerate, monitor Sao2 (2) Recurrent right pleural effusion Current Visit: Yes Status: Acute Plan to address problem: Pulmonary consulted, diuretic therapy, supportive care, treat CHF, (3) CHF exacerbation Current Visit: No Status: Acute Qualifiers: Congestive heart failure type: unspecified congestive heart failure type Qualified Code(s): I50.9 - Heart failure, unspecified Plan to address problem: Cardiology consulted: CHF protocol, fluid restriction, low sodium diet, monitor uop w shift, daily weight, diuretic therapy, (4) Hypertension Current Visit: No Status: Acute Qualifiers: Hypertension type: H Plan to address problem: monitor bp q shift, continue current care (5) S/P AVR (aortic valve replacement) Current Visit: No Status: Acute Plan to address problem: continue current anticoagulation, (6) DVT prophylaxis Current Visit: Yes Status: Acute History Interval history: Pt resting comfortably sitting in chair, Pt denies pain. Pt states that his breathing is better since admission. Pt denies loose stools, or dark stools overnight. No reported nursing events. Pt denies CP, Palpitations, NVD. Discussed care plan with patient. Hospitalist Physical - Constitutional Vitals: Temp Pulse Resp BP Pulse Ox 98.0 F 74 29 H 104/68 100 11/15/16 20:00 11/15/16 22:30 11/15/16 22:30 11/15/16 22:30 11/15/16 14:40 General appearance: Present: no acute distress - EENT Eyes: Present: PERRL, EOM intact ENT: hearing intact - Neck Neck: Present: supple - Respiratory Respiratory: bilateral: diminished - Cardiovascular Rhythm: regular Heart Sounds: Present: S1 & S2 - Extremities Extremities: no ischemia Extremity abnormal: edema Peripheral Pulses: within normal limits - Abdominal General gastrointestinal: soft, non-tender, non-distended - Integumentary Integumentary: Present: clear, dry - Psychiatric Psychiatric: appropriate mood/affect, cooperative - Neurologic Neurologic: CNII-XII intact Results - Labs CBC & Chem 7: 11/14/16 06:29 11/14/16 06:29 Labs: Laboratory Last Values WBC 4.8 K/mm3 (4.5-11.0) 11/14/16 06:29 RBC 5.05 M/mm3 (3.65-5.03) H 11/14/16 06:29 Hgb 12.4 gm/dl (11.8-15.2) 11/14/16 06:29 Hct 40.8 % (35.5-45.6) 11/14/16 06:29 MCV 81 fl (84-94) L 11/14/16 06:29 MCH 24 pg (28-32) L 11/14/16 06:29 MCHC 30 % (32-34) L 11/14/16 06:29 RDW 15.5 % (13.2-15.2) H 11/14/16 06:29 Plt Count 186 K/mm3 (140-440) 11/14/16 06:29 Lymph % (Auto) 11.1 % (13.4-35.0) L 11/13/16 19:09 [place] % (Auto) Contracts Advisor 11/14/16 06:29 Eos % (Auto) 1.4 % (0.0-4.3) 11/13/16 19:09 Baso % (Auto) 0.4 % (0.0-1.8) 11/13/16 19:09 Lymph # 0.5 K/mm3 (1.2-5.4) L 11/13/16 19:09 [place] # 0.6 K/mm3 (0.0-0.8) 11/13/16 19:09 Eos # 0.1 K/mm3 (0.0-0.4) 11/13/16 19:09 Baso # 0.0 K/mm3 (0.0-0.1) 11/13/16 19:09 Add Manual Diff Complete 11/14/16 06:29 Total Counted 100 11/14/16 06:29 Seg Neutrophils % 74.5 % (40.0-70.0) H 11/13/16 19:09 Seg Neuts % (Manual) 78.0 % (40.0-70.0) H 11/14/16 06:29 Band Neutrophils % 0 % 11/14/16 06:29 Lymphocytes % (Manual) 7.0 % (13.4-35.0) L 11/14/16 06:29 Reactive Lymphs % (Man) 2.0 % 11/14/16 06:29 Monocytes % (Manual) 13.0 % (0.0-7.3) H 11/14/16 06:29 Eosinophils % (Manual) 0 % (0.0-4.3) 11/14/16 06:29 Basophils % (Manual) 0 % (0.0-1.8) 11/14/16 06:29 Metamyelocytes % 0 % 11/14/16 06:29 Myelocytes % 0 % 11/14/16 06:29 Promyelocytes % 0 % 11/14/16 06:29 Blast Cells % 0 % 11/14/16 06:29 Nucleated RBC % Not Reportable 11/14/16 06:29 Seg Neutrophils # 3.7 K/mm3 (1.8-7.7) 11/13/16 19:09 Seg Neutrophils # Man 3.7 K/mm3 (1.8-7.7) 11/14/16 06:29 Band Neutrophils # 0.0 K/mm3 11/14/16 06:29 Lymphocytes # (Manual) 0.3 K/mm3 (1.2-5.4) L 11/14/16 06:29 Abs React Lymphs (Man) 0.1 K/mm3 11/14/16 06:29 Monocytes # (Manual) 0.6 K/mm3 (0.0-0.8) 11/14/16 06:29 Eosinophils # (Manual) 0.0 K/mm3 (0.0-0.4) 11/14/16 06:29 Basophils # (Manual) 0.0 K/mm3 (0.0-0.1) 11/14/16 06:29 Metamyelocytes # 0.0 K/mm3 11/14/16 06:29 Myelocytes # 0.0 K/mm3 11/14/16 06:29 Promyelocytes # 0.0 K/mm3 11/14/16 06:29 Blast Cells # 0.0 K/mm3 11/14/16 06:29 WBC Morphology Not Reportable 11/14/16 06:29 Hypersegmented Neuts Not Reportable 11/14/16 06:29 Hyposegmented Neuts Not Reportable 11/14/16 06:29 Hypogranular Neuts Not Reportable 11/14/16 06:29 Smudge Cells Not Reportable 11/14/16 06:29 Toxic Granulation Not Reportable 11/14/16 06:29 Toxic Vacuolation Not Reportable 11/14/16 06:29 Dohle Bodies Not Reportable 11/14/16 06:29 Pelger-Huet Anomaly Not Reportable 11/14/16 06:29 Cuauhtemoc Rods Not Reportable 11/14/16 06:29 Platelet Estimate Appears normal 11/14/16 06:29 Clumped Platelets Not Reportable 11/14/16 06:29 Plt Clumps, EDTA Not Reportable 11/14/16 06:29 Large Platelets Not Reportable 11/14/16 06:29 Giant Platelets Not Reportable 11/14/16 06:29 Platelet Satelliting Not Reportable 11/14/16 06:29 Plt Morphology Comment Not Reportable 11/14/16 06:29 RBC Morphology Not Reportable 11/14/16 06:29 Dimorphic RBCs Not Reportable 11/14/16 06:29 Polychromasia Few 11/14/16 06:29 Hypochromasia Not Reportable 11/14/16 06:29 Poikilocytosis Not Reportable 11/14/16 06:29 Anisocytosis 1+ 11/14/16 06:29 Microcytosis Not Reportable 11/14/16 06:29 Macrocytosis Not Reportable 11/14/16 06:29 Spherocytes Not Reportable 11/14/16 06:29 Pappenheimer Bodies Not Reportable 11/14/16 06:29 Sickle Cells Not Reportable 11/14/16 06:29 Target Cells Not Reportable 11/14/16 06:29 Tear Drop Cells Not Reportable 11/14/16 06:29 Ovalocytes Few 11/14/16 06:29 Stomatocytes Rare 11/14/16 06:29 Helmet Cells Not Reportable 11/14/16 06:29 Garcia-[place] Bodies Not Reportable 11/14/16 06:29 [place] Rings Not Reportable 11/14/16 06:29 [place] Cells Not Reportable 11/14/16 06:29 Bite Cells Not Reportable 11/14/16 06:29 Crenated Cell Not Reportable 11/14/16 06:29 Elliptocytes Not Reportable 11/14/16 06:29 Acanthocytes (Spur) Not Reportable 11/14/16 06:29 Rouleaux Not Reportable 11/14/16 06:29 Hemoglobin C Crystals Not Reportable 11/14/16 06:29 Schistocytes Not Reportable 11/14/16 06:29 Malaria parasites Not Reportable 11/14/16 06:29 Rom Bodies Not Reportable 11/14/16 06:29 Hem Pathologist Commnt No 11/14/16 06:29 PT 21.3 Sec. (12.2-14.9) H 11/15/16 05:35 INR 1.85 (0.87-1.13) H 11/15/16 05:35 APTT 36.6 Sec. (24.2-36.6) 11/13/16 12:49 Sodium 140 mmol/L (137-145) 11/14/16 06:29 Potassium 4.5 mmol/L (3.6-5.0) 11/14/16 06:29 Chloride 100.6 mmol/L (98-107) 11/14/16 06:29 Carbon Dioxide 29 mmol/L (22-30) 11/14/16 06:29 Anion Gap 15 mmol/L 11/14/16 06:29 BUN 12 mg/dL (9-20) 11/14/16 06:29 Creatinine 0.9 mg/dL (0.8-1.5) 11/14/16 06:29 Estimated GFR > 60 ml/min 11/14/16 06:29 BUN/Creatinine Ratio 13.33 % 11/14/16 06:29 Glucose 110 mg/dL (75-100) H 11/14/16 06:29 Hemoglobin A1c 6.0 % (4-6) 11/13/16 19:09 Calcium 8.4 mg/dL (8.4-10.2) 11/14/16 06:29 Total Bilirubin 0.4 mg/dL (0.1-1.2) 11/13/16 19:09 AST 32 units/L (5-40) 11/13/16 19:09 ALT 15 units/L (7-56) 11/13/16 19:09 Alkaline Phosphatase 72 units/L (35-129) 11/13/16 19:09 Total Creatine Kinase 194 units/L (55-170) H 11/13/16 12:49 CK-MB (CK-2) 4.3 ng/mL (0.0-4.0) H 11/13/16 12:49 CK-MB (CK-2) Rel Index 2.2 (0-4) 11/13/16 12:49 Troponin T < 0.010 ng/mL (0.00-0.029) 11/13/16 12:49 NT-Pro-B Natriuret Pep 2419 pg/mL (0-900) H 11/13/16 12:49 Total Protein 6.9 g/dL (6.3-8.2) 11/13/16 19:09 Albumin 3.0 g/dL (3.9-5) L 11/13/16 19:09 Albumin/Globulin Ratio 0.8 % 11/13/16 19:09 Blood Type B POSITIVE 11/13/16 12:49 Antibody Screen Negative 11/13/16 12:49
[2016-11-16 05:50] LABS: INR 1.92 (0.87-1.13)
[2016-11-16] MEDS: LASIX IV SCH ×2 (05:57→18:07)
[2016-11-16] MEDS: DILAUDID IV PRN ×3 (06:15→22:25)
[2016-11-16] MEDS: PRIMACOR 20 MG in D5W 80 ML IV SCH ×2 (06:36→18:06)
[2016-11-16] MEDS: PROTONIX PO SCH (10:06)
[2016-11-16] MEDS: COZAAR PO SCH (10:06)
[2016-11-16] MEDS: K-DUR PO SCH (10:07)
--- NOTE | 2016-11-16 10:20 | Progress Note ---
Assessment and Plan Pleural effusion CHF exacerbation, systolic Hx of coronary artery disease Hx of predominantly nonischemic cardiomyopathy EF 25-30% on echo 08/2016 Hx of mechanical aortic valve replacement on Coumadin therapy Presence of AICD Pulmonary HTN Echocardiogram done 08/2016 reports a severe cardiomyopathy, ejection fraction 25-30%, well-functioning mechanical aortic valve, and severe pulmonary hypertension with primary artery systolic pressure 83. Continue medical therapy for systolic heart failure. Continue trial of IV milrinone to enhance diuresis. Transfer to telemetry floor when bed becomes available. Strict Is and Os. Daily weights. Subjective Date of service: 11/16/16 Interval history: Patient reports shortness of breath is less. On IV milrinone. Objective Vital Signs Temp Pulse Resp BP Pulse Ox 11/16/16 10:06 99 H 125/58 11/16/16 08:00 98.2 F 11/16/16 06:15 22 11/16/16 04:30 85 20 11/16/16 04:00 98.0 F 85 31 H 11/16/16 03:30 91 H 35 H 11/16/16 03:00 91 H 24 11/16/16 02:30 87 34 H 11/16/16 02:00 93 H 18 11/16/16 01:30 95 H 30 H 104/68 11/16/16 01:00 92 H 21 104/68 11/16/16 00:30 91 H 22 104/68 11/16/16 00:00 97.9 F 88 33 H 104/68 11/15/16 23:30 84 29 H 104/68 11/15/16 23:00 81 32 H 104/68 11/15/16 22:58 79 22 104/68 11/15/16 22:30 74 29 H 104/68 11/15/16 22:00 79 23 104/68 11/15/16 21:30 80 24 104/68 11/15/16 21:00 85 28 H 104/68 11/15/16 20:30 82 32 H 104/68 11/15/16 20:00 98.0 F 90 22 104/68 11/15/16 19:30 78 29 H 104/68 11/15/16 19:00 87 32 H 104/68 11/15/16 18:30 80 25 H 104/68 11/15/16 18:00 98.4 F 76 25 H 104/68 02/15/17 17:30 70 26 H /11/15/16 17:00 75 22 /11/15/16 16:30 82 26 H 11/15/16 16:00 78 26 H 11/15/16 15:30 86 31 H 11/15/16 15:00 72 19 11/15/16 14:40 100 11/15/16 14:30 79 34 H 11/15/16 14:01 81 22 - Physical Examination General: No Apparent Distress HEENT: Positive: PERRL Neck: Positive: neck supple Cardiac: Positive: Other (paced) Neuro: Positive: Grossly Intact Extremities: Present: +1 Edema - Labs and Meds Coagulation 11/16/16 Range/Units 04:48 PT 22.0 H (12.2-14.9) Sec. INR 1.92 H (0.87-1.13) Pacemaker: ventricular pacing w/capt
--- NOTE | 2016-11-16 12:38 | Progress Note ---
Assessment and Plan 65 y/o male with known systolic heart failure admitted with dyspnea on exertion and hypoxemia. 1. CXR tomorrow 2. Will continue to follow Subjective Date of service: 11/16/16 Interval history: No acute events. Transferred to unit for milrinone as there were no floor beds. Remains on room air and stable. States that breathing is better. Able to lie flat. Objective Vital Signs - 12hr 11/16/16 11/16/16 11/16/16 01:00 01:30 02:00 Temperature Pulse Rate 92 H 95 H 93 H Respiratory 21 30 H 18 Rate Blood Pressure 104/68 104/68 11/16/16 11/16/16 11/16/16 02:30 03:00 03:30 Temperature Pulse Rate 87 91 H 91 H Respiratory 34 H 24 35 H Rate Blood Pressure 11/16/16 11/16/16 11/16/16 04:00 04:30 06:15 Temperature 98.0 F Pulse Rate 85 85 Respiratory 31 H 20 22 Rate Blood Pressure 11/16/16 11/16/16 11/16/16 08:00 10:06 12:00 Temperature 98.2 F 98.1 F Pulse Rate 99 H Respiratory Rate Blood Pressure 125/58 Constitutional: no acute distress, alert Eyes: non-icteric ENT: oropharynx moist Neck: supple Ascultation: Right: rales (improved), Bilateral: clear (anteriorly) Cardiovascular: regular rate and rhythm Gastrointestinal: normoactive bowel sounds Extremities: no cyanosis, no edema Neurologic: normal mental status, CN II-XII normal Psychiatric: mood appropriate CBC and BMP: 11/14/16 06:29 11/14/16 06:29 ABG, PT/INR, D-dimer: PT/INR, D-dimer PT 22.0 Sec. (12.2-14.9) H 11/16/16 04:48 INR 1.92 (0.87-1.13) H 11/16/16 04:48 Abnormal lab findings: Abnormal Labs 11/13/16 11/13/16 11/14/16 19:09 19:09 06:29 RBC 5.24 H 5.05 H MCV 79 L 81 L MCH 25 L 24 L MCHC 31 L 30 L RDW 15.3 H 15.5 H Lymph % (Auto) 11.1 L [place] % (Auto) 12.6 H Lymph # 0.5 L Seg Neutrophils % 74.5 H Seg Neuts % (Manual) 78.0 H Lymphocytes % (Manual) 7.0 L Monocytes % (Manual) 13.0 H Lymphocytes # (Manual) 0.3 L PT INR Sodium 135 L Chloride 94.9 L Glucose 108 H Calcium 8.2 L Albumin 3.0 L 11/14/16 11/14/16 11/15/16 06:29 12:48 05:35 RBC MCV MCH MCHC RDW Lymph % (Auto) [place] % (Auto) Lymph # Seg Neutrophils % Seg Neuts % (Manual) Lymphocytes % (Manual) Monocytes % (Manual) Lymphocytes # (Manual) PT 23.7 H 21.3 H INR 2.11 H 1.85 H Sodium Chloride Glucose 110 H Calcium Albumin 11/16/16 04:48 RBC MCV MCH MCHC RDW Lymph % (Auto) [place] % (Auto) Lymph # Seg Neutrophils % Seg Neuts % (Manual) Lymphocytes % (Manual) Monocytes % (Manual) Lymphocytes # (Manual) PT 22.0 H INR 1.92 H Sodium Chloride Glucose Calcium Albumin
[2016-11-16 15:27] LABS: Anion Gap 14 mmol/L; Blood Urea Nitrogen 12 mg/dL (9-20); Carbon Dioxide 30 mmol/L (22-30); Chloride 97.3 mmol/L (98-107); Glucose 125 mg/dL (75-100); Magnesium 1.6 mg/dL (1.7-2.3); Potassium 4.6 mmol/L (3.6-5.0); Sodium 137 mmol/L (137-145)
[2016-11-16] MEDS: COREG PO SCH ×2 (17:30→21:30)
--- NOTE | 2016-11-16 17:41 | Progress Note ---
Assessment and Plan - Patient Problems (1) Acute respiratory failure with hypoxemia Current Visit: Yes Status: Acute Plan to address problem: supplemental oxygen, negs, aspiration precautions, pulmonary toilet, diuretic therapy, pulmonary consulted, wean oxygen as tolerate, monitor Sao2 The high probability of a clinically significant, sudden or life threatening deterioration of the [cardiac, pulmonary, renal] system(s) required my full and direct attention, intervention and personal management. The aggregate critical care time was [45] minutes. This time is in addition to time spent performing reported procedures but includes the following: [x] Data Review and interpretation [x] Patient assessment and monitoring of vital signs [x] Documentation [x] Medication orders and management (2) Recurrent right pleural effusion Current Visit: Yes Status: Acute Plan to address problem: Pulmonary consulted, diuretic therapy, supportive care, treat CHF, (3) CHF exacerbation Current Visit: No Status: Acute Qualifiers: Congestive heart failure type: unspecified congestive heart failure type Qualified Code(s): I50.9 - Heart failure, unspecified Plan to address problem: Cardiology consulted: CHF protocol, fluid restriction, low sodium diet, monitor uop w shift, daily weight, diuretic therapy, continue milrinone drip as per cardiology team. (4) Hypertension Current Visit: No Status: Acute Qualifiers: Hypertension type: H Plan to address problem: monitor bp q shift, continue current care (5) S/P AVR (aortic valve replacement) Current Visit: No Status: Acute Plan to address problem: continue current anticoagulation, (6) DVT prophylaxis Current Visit: Yes Status: Acute History Interval history: Pt resting comfortably sitting in chair, Pt denies pain. Pt states that his breathing is better since admission. Pt denies loose stools, or dark stools overnight. No reported nursing events. Pt denies CP, Palpitations, NVD. Discussed care plan with patient. Pt and aunt at bedside. Hospitalist Physical - Constitutional Vitals: Temp Pulse Resp BP Pulse Ox 98.0 F 91 H 22 125/58 100 11/16/16 16:00 11/16/16 14:30 11/16/16 14:30 11/16/16 14:30 11/15/16 14:40 General appearance: Present: no acute distress - EENT Eyes: Present: PERRL, EOM intact ENT: hearing intact - Neck Neck: Present: supple - Respiratory Respiratory: bilateral: diminished - Cardiovascular Rhythm: regular Heart Sounds: Present: S1 & S2 - Extremities Extremities: no ischemia Extremity abnormal: edema Peripheral Pulses: within normal limits - Abdominal General gastrointestinal: soft, non-tender, non-distended - Integumentary Integumentary: Present: clear, dry - Psychiatric Psychiatric: appropriate mood/affect, cooperative - Neurologic Neurologic: CNII-XII intact Results - Labs CBC & Chem 7: 11/14/16 06:29 11/16/16 14:52 Labs: Laboratory Last Values WBC 4.8 K/mm3 (4.5-11.0) 11/14/16 06:29 RBC 5.05 M/mm3 (3.65-5.03) H 11/14/16 06:29 Hgb 12.4 gm/dl (11.8-15.2) 11/14/16 06:29 Hct 40.8 % (35.5-45.6) 11/14/16 06:29 MCV 81 fl (84-94) L 11/14/16 06:29 MCH 24 pg (28-32) L 11/14/16 06:29 MCHC 30 % (32-34) L 11/14/16 06:29 RDW 15.5 % (13.2-15.2) H 11/14/16 06:29 Plt Count 186 K/mm3 (140-440) 11/14/16 06:29 Lymph % (Auto) 11.1 % (13.4-35.0) L 11/13/16 19:09 [place] % (Auto) Chief Payroll Clerk 11/14/16 06:29 Eos % (Auto) 1.4 % (0.0-4.3) 11/13/16 19:09 Baso % (Auto) 0.4 % (0.0-1.8) 11/13/16 19:09 Lymph # 0.5 K/mm3 (1.2-5.4) L 11/13/16 19:09 [place] # 0.6 K/mm3 (0.0-0.8) 11/13/16 19:09 Eos # 0.1 K/mm3 (0.0-0.4) 11/13/16 19:09 Baso # 0.0 K/mm3 (0.0-0.1) 11/13/16 19:09 Add Manual Diff Complete 11/14/16 06:29 Total Counted 100 11/14/16 06:29 Seg Neutrophils % 74.5 % (40.0-70.0) H 11/13/16 19:09 Seg Neuts % (Manual) 78.0 % (40.0-70.0) H 11/14/16 06:29 Band Neutrophils % 0 % 11/14/16 06:29 Lymphocytes % (Manual) 7.0 % (13.4-35.0) L 11/14/16 06:29 Reactive Lymphs % (Man) 2.0 % 11/14/16 06:29 Monocytes % (Manual) 13.0 % (0.0-7.3) H 11/14/16 06:29 Eosinophils % (Manual) 0 % (0.0-4.3) 11/14/16 06:29 Basophils % (Manual) 0 % (0.0-1.8) 11/14/16 06:29 Metamyelocytes % 0 % 11/14/16 06:29 Myelocytes % 0 % 11/14/16 06:29 Promyelocytes % 0 % 11/14/16 06:29 Blast Cells % 0 % 11/14/16 06:29 Nucleated RBC % Not Reportable 11/14/16 06:29 Seg Neutrophils # 3.7 K/mm3 (1.8-7.7) 11/13/16 19:09 Seg Neutrophils # Man 3.7 K/mm3 (1.8-7.7) 11/14/16 06:29 Band Neutrophils # 0.0 K/mm3 11/14/16 06:29 Lymphocytes # (Manual) 0.3 K/mm3 (1.2-5.4) L 11/14/16 06:29 Abs React Lymphs (Man) 0.1 K/mm3 11/14/16 06:29 Monocytes # (Manual) 0.6 K/mm3 (0.0-0.8) 11/14/16 06:29 Eosinophils # (Manual) 0.0 K/mm3 (0.0-0.4) 11/14/16 06:29 Basophils # (Manual) 0.0 K/mm3 (0.0-0.1) 11/14/16 06:29 Metamyelocytes # 0.0 K/mm3 11/14/16 06:29 Myelocytes # 0.0 K/mm3 11/14/16 06:29 Promyelocytes # 0.0 K/mm3 11/14/16 06:29 Blast Cells # 0.0 K/mm3 11/14/16 06:29 WBC Morphology Not Reportable 11/14/16 06:29 Hypersegmented Neuts Not Reportable 11/14/16 06:29 Hyposegmented Neuts Not Reportable 11/14/16 06:29 Hypogranular Neuts Not Reportable 11/14/16 06:29 Smudge Cells Not Reportable 11/14/16 06:29 Toxic Granulation Not Reportable 11/14/16 06:29 Toxic Vacuolation Not Reportable 11/14/16 06:29 Dohle Bodies Not Reportable 11/14/16 06:29 Pelger-Huet Anomaly Not Reportable 11/14/16 06:29 Cuauhtemoc Rods Not Reportable 11/14/16 06:29 Platelet Estimate Appears normal 11/14/16 06:29 Clumped Platelets Not Reportable 11/14/16 06:29 Plt Clumps, EDTA Not Reportable 11/14/16 06:29 Large Platelets Not Reportable 11/14/16 06:29 Giant Platelets Not Reportable 11/14/16 06:29 Platelet Satelliting Not Reportable 11/14/16 06:29 Plt Morphology Comment Not Reportable 11/14/16 06:29 RBC Morphology Not Reportable 11/14/16 06:29 Dimorphic RBCs Not Reportable 11/14/16 06:29 Polychromasia Few 11/14/16 06:29 Hypochromasia Not Reportable 11/14/16 06:29 Poikilocytosis Not Reportable 11/14/16 06:29 Anisocytosis 1+ 11/14/16 06:29 Microcytosis Not Reportable 11/14/16 06:29 Macrocytosis Not Reportable 11/14/16 06:29 Spherocytes Not Reportable 11/14/16 06:29 Pappenheimer Bodies Not Reportable 11/14/16 06:29 Sickle Cells Not Reportable 11/14/16 06:29 Target Cells Not Reportable 11/14/16 06:29 Tear Drop Cells Not Reportable 11/14/16 06:29 Ovalocytes Few 11/14/16 06:29 Stomatocytes Rare 11/14/16 06:29 Helmet Cells Not Reportable 11/14/16 06:29 Garcia-Clymer Bodies Not Reportable 11/14/16 06:29 Rodeo Rings Not Reportable 11/14/16 06:29 Johnny Cells Not Reportable 11/14/16 06:29 Bite Cells Not Reportable 11/14/16 06:29 Crenated Cell Not Reportable 11/14/16 06:29 Elliptocytes Not Reportable 11/14/16 06:29 Acanthocytes (Spur) Not Reportable 11/14/16 06:29 Rouleaux Not Reportable 11/14/16 06:29 Hemoglobin C Crystals Not Reportable 11/14/16 06:29 Schistocytes Not Reportable 11/14/16 06:29 Malaria parasites Not Reportable 11/14/16 06:29 Rom Bodies Not Reportable 11/14/16 06:29 Hem Pathologist Commnt No 11/14/16 06:29 PT 22.0 Sec. (12.2-14.9) H 11/16/16 04:48 INR 1.92 (0.87-1.13) H 11/16/16 04:48 APTT 36.6 Sec. (24.2-36.6) 11/13/16 12:49 Sodium 137 mmol/L (137-145) 11/16/16 14:52 Potassium 4.6 mmol/L (3.6-5.0) 11/16/16 14:52 Chloride 97.3 mmol/L (98-107) L 11/16/16 14:52 Carbon Dioxide 30 mmol/L (22-30) 11/16/16 14:52 Anion Gap 14 mmol/L 11/16/16 14:52 BUN 12 mg/dL (9-20) 11/16/16 14:52 Creatinine 1.0 mg/dL (0.8-1.5) 11/16/16 14:52 Estimated GFR > 60 ml/min 11/16/16 14:52 BUN/Creatinine Ratio 12.00 % 11/16/16 14:52 Glucose 125 mg/dL (75-100) H 11/16/16 14:52 Hemoglobin A1c 6.0 % (4-6) 11/13/16 19:09 Calcium 8.0 mg/dL (8.4-10.2) L 11/16/16 14:52 Magnesium 1.6 mg/dL (1.7-2.3) L 11/16/16 14:52 Total Bilirubin 0.4 mg/dL (0.1-1.2) 11/13/16 19:09 AST 32 units/L (5-40) 11/13/16 19:09 ALT 15 units/L (7-56) 11/13/16 19:09 Alkaline Phosphatase 72 units/L (35-129) 11/13/16 19:09 Total Creatine Kinase 194 units/L (55-170) H 11/13/16 12:49 CK-MB (CK-2) 4.3 ng/mL (0.0-4.0) H 11/13/16 12:49 CK-MB (CK-2) Rel Index 2.2 (0-4) 11/13/16 12:49 Troponin T < 0.010 ng/mL (0.00-0.029) 11/13/16 12:49 NT-Pro-B Natriuret Pep 2419 pg/mL (0-900) H 11/13/16 12:49 Total Protein 6.9 g/dL (6.3-8.2) 11/13/16 19:09 Albumin 3.0 g/dL (3.9-5) L 11/13/16 19:09 Albumin/Globulin Ratio 0.8 % 11/13/16 19:09 Blood Type B POSITIVE 11/13/16 12:49 Antibody Screen Negative 11/13/16 12:49
[2016-11-16] MEDS: COUMADIN PO SCH (18:08)
[2016-11-16] MEDS: XALATAN 0.005% OD SCH (18:10)
[2016-11-17] MEDS: PRIMACOR 20 MG in D5W 80 ML IV SCH ×3 (04:35→23:34)
[2016-11-17] MEDS: DILAUDID IV PRN ×4 (04:35→21:46)
[2016-11-17 05:30] LABS: INR 2.45 (0.87-1.13)
[2016-11-17] MEDS: LASIX IV SCH ×2 (06:43→17:07)
[2016-11-17 08:15] LABS: Basophils % (Auto) 0.5 % (0.0-1.8); Eosinophils % (Auto) 1.8 % (0.0-4.3); Hematocrit 38.4 % (35.5-45.6); Hemoglobin 11.8 gm/dl (11.8-15.2); Mean Corpuscular HGB Conc 31 % (32-34); Mean Corpuscular Volume 79 fl (84-94); Platelet Count 183 K/mm3 (140-440); Red Blood Count 4.84 M/mm3 (3.65-5.03); Red Cell Distribution Width 15.1 % (13.2-15.2); White Blood Count 5.6 K/mm3 (4.5-11.0)
[2016-11-17 08:21] LABS: Mean Corpuscular Hemoglobin 24 pg (28-32)
[2016-11-17 08:34] LABS: Alanine Aminotransferase 12 units/L (7-56); Albumin 2.6 g/dL (3.9-5); Albumin/Globulin Ratio 0.7 %; Alkaline Phosphatase 66 units/L (35-129); Anion Gap 13 mmol/L; BUN/Creatinine Ratio 12.22; Bilirubin,Total 0.7 mg/dL (0.1-1.2); Blood Urea Nitrogen 11 mg/dL (9-20); Carbon Dioxide 31 mmol/L (22-30); Chloride 95.7 mmol/L (98-107); Glucose 110 mg/dL (75-100); Potassium 3.8 mmol/L (3.6-5.0); Sodium 136 mmol/L (137-145); Total Protein 6.3 g/dL (6.3-8.2)
[2016-11-17] MEDS: COZAAR PO SCH (09:24)
[2016-11-17] MEDS: K-DUR PO SCH (09:24)
[2016-11-17] MEDS: PROTONIX PO SCH (09:24)
[2016-11-17] MEDS: COREG PO SCH ×2 (09:24→21:48)
--- NOTE | 2016-11-17 09:32 | XRay Report ---
SINGLE VIEW CHEST: Compared to 11/13/16. HISTORY: Pleural effusion. FINDINGS: Cardiomegaly. Trachea is midline. Stable support system. Moderate right pleural effusion and minimal left pleural effusion without significant interval change. IMPRESSION: No significant interval change.
--- NOTE | 2016-11-17 09:51 | Progress Note ---
Assessment and Plan 65 y/o male with known systolic heart failure admitted with dyspnea on exertion and hypoxemia. 1. Hold on thoracentesis given improvement in symptoms 2. Inotropic therapy per cards 3. Will continue to follow along with you. Subjective Date of service: 11/17/16 Interval history: No acute events overnight. Repeat CXR still shows moderate sized effusion. Only negative 300cc's on yesterday. Now on lasix BID Objective Vital Signs - 12hr 11/16/16 11/16/16 11/16/16 22:00 22:24 22:30 Temperature Pulse Rate 97 H 92 H 93 H Pulse Rate [ 74 From Monitor] Respiratory 19 28 H 20 Rate Blood Pressure 113/67 113/67 113/67 O2 Sat by Pulse Oximetry 11/16/16 11/16/16 11/16/16 22:40 22:50 23:00 Temperature Pulse Rate 102 H 94 H 101 H Pulse Rate [ From Monitor] Respiratory 21 27 H 28 H Rate Blood Pressure 113/67 113/67 113/67 O2 Sat by Pulse Oximetry 11/16/16 11/16/16 11/16/16 23:10 23:20 23:30 Temperature Pulse Rate 87 101 H 100 H Pulse Rate [ From Monitor] Respiratory 30 H 25 H 27 H Rate Blood Pressure 113/67 113/67 113/67 O2 Sat by Pulse Oximetry 11/16/16 11/16/16 11/17/16 23:40 23:50 00:00 Temperature Pulse Rate 85 92 H 94 H Pulse Rate [ From Monitor] Respiratory 25 H 17 23 Rate Blood Pressure 113/67 113/67 113/67 O2 Sat by Pulse Oximetry 11/17/16 11/17/16 11/17/16 00:10 00:20 00:30 Temperature Pulse Rate 91 H 103 H 113 H Pulse Rate [ From Monitor] Respiratory 19 24 18 Rate Blood Pressure 113/67 113/67 113/67 O2 Sat by Pulse Oximetry 11/17/16 11/17/16 11/17/16 00:40 00:50 01:00 Temperature Pulse Rate 98 H 98 H 91 H Pulse Rate [ From Monitor] Respiratory 23 24 25 H Rate Blood Pressure 113/67 113/67 113/67 O2 Sat by Pulse Oximetry 11/17/16 11/17/16 11/17/16 01:10 01:20 01:30 Temperature Pulse Rate 87 94 H 91 H Pulse Rate [ From Monitor] Respiratory 22 24 16 Rate Blood Pressure 113/67 113/67 113/67 O2 Sat by Pulse Oximetry 11/17/16 11/17/16 11/17/16 01:40 01:50 02:00 Temperature Pulse Rate 89 92 H 100 H Pulse Rate [ From Monitor] Respiratory 22 24 19 Rate Blood Pressure 113/67 113/67 113/67 O2 Sat by Pulse Oximetry 11/17/16 11/17/16 11/17/16 02:10 02:20 02:30 Temperature Pulse Rate 99 H 93 H 91 H Pulse Rate [ From Monitor] Respiratory 27 H 28 H 25 H Rate Blood Pressure 113/67 113/67 113/67 O2 Sat by Pulse Oximetry 11/17/16 11/17/16 11/17/16 02:40 02:50 03:00 Temperature Pulse Rate 94 H 94 H 89 Pulse Rate [ From Monitor] Respiratory 24 25 H 25 H Rate Blood Pressure 113/67 113/67 113/67 O2 Sat by Pulse Oximetry 11/17/16 11/17/16 11/17/16 03:10 03:20 03:30 Temperature Pulse Rate 101 H 95 H 96 H Pulse Rate [ From Monitor] Respiratory 26 H 27 H 30 H Rate Blood Pressure 113/67 113/67 113/67 O2 Sat by Pulse Oximetry 11/17/16 11/17/16 11/17/16 03:40 03:50 04:00 Temperature 97.4 F L Pulse Rate 98 H 100 H 100 H Pulse Rate [ From Monitor] Respiratory 24 29 H 21 Rate Blood Pressure 113/67 113/67 113/67 O2 Sat by Pulse Oximetry 11/17/16 11/17/16 11/17/16 04:10 04:20 04:30 Temperature Pulse Rate 109 H 93 H 93 H Pulse Rate [ From Monitor] Respiratory 21 24 24 Rate Blood Pressure 111/77 111/77 111/77 O2 Sat by Pulse Oximetry 11/17/16 11/17/16 11/17/16 04:40 04:50 05:00 Temperature Pulse Rate 89 94 H 93 H Pulse Rate [ From Monitor] Respiratory 20 22 26 H Rate Blood Pressure 111/77 111/77 111/77 O2 Sat by Pulse Oximetry 11/17/16 11/17/16 11/17/16 05:10 05:20 05:30 Temperature Pulse Rate 93 H 95 H 112 H Pulse Rate [ From Monitor] Respiratory 30 H 27 H 30 H Rate Blood Pressure 111/77 111/77 111/77 O2 Sat by Pulse Oximetry 11/17/16 11/17/16 11/17/16 05:40 05:50 06:00 Temperature Pulse Rate 97 H 114 H 101 H Pulse Rate [ From Monitor] Respiratory 12 35 H 24 Rate Blood Pressure 111/77 111/77 111/77 O2 Sat by Pulse Oximetry 11/17/16 11/17/16 11/17/16 06:10 06:20 06:30 Temperature Pulse Rate 104 H 92 H 92 H Pulse Rate [ From Monitor] Respiratory 29 H 16 30 H Rate Blood Pressure 113/72 113/72 113/72 O2 Sat by Pulse 91 Oximetry 11/17/16 11/17/16 11/17/16 06:40 06:52 07:00 Temperature Pulse Rate 91 H 96 H 94 H Pulse Rate [ From Monitor] Respiratory 26 H 21 35 H Rate Blood Pressure 113/72 113/72 113/72 O2 Sat by Pulse Oximetry 11/17/16 11/17/16 11/17/16 07:10 07:20 07:30 Temperature Pulse Rate 117 H 97 H 98 H Pulse Rate [ From Monitor] Respiratory 19 27 H 24 Rate Blood Pressure 113/72 113/72 113/72 O2 Sat by Pulse Oximetry 11/17/16 11/17/16 08:51 09:24 Temperature Pulse Rate 114 H Pulse Rate [ From Monitor] Respiratory Rate Blood Pressure 127/78 O2 Sat by Pulse 100 Oximetry Constitutional: no acute distress, alert Eyes: non-icteric ENT: oropharynx moist Neck: supple Ascultation: Right: rales (improved), Bilateral: clear (anteriorly) Cardiovascular: regular rate and rhythm Gastrointestinal: normoactive bowel sounds Extremities: no cyanosis, no edema Neurologic: normal mental status, CN II-XII normal Psychiatric: mood appropriate CBC and BMP: 11/17/16 08:00 11/17/16 08:00 ABG, PT/INR, D-dimer: PT/INR, D-dimer PT 26.7 Sec. (12.2-14.9) H 11/17/16 05:01 INR 2.45 (0.87-1.13) H 11/17/16 05:01 Abnormal lab findings: Abnormal Labs 11/13/16 11/13/16 11/14/16 19:09 19:09 06:29 RBC 5.24 H 5.05 H MCV 79 L 81 L MCH 25 L 24 L MCHC 31 L 30 L RDW 15.3 H 15.5 H Lymph % (Auto) 11.1 L [place] % (Auto) 12.6 H Lymph # 0.5 L Seg Neutrophils % 74.5 H Seg Neuts % (Manual) 78.0 H Lymphocytes % (Manual) 7.0 L Monocytes % (Manual) 13.0 H Lymphocytes # (Manual) 0.3 L PT INR Sodium 135 L Chloride 94.9 L Carbon Dioxide Glucose 108 H Calcium 8.2 L Magnesium Albumin 3.0 L 11/14/16 11/14/16 11/15/16 06:29 12:48 05:35 RBC MCV MCH MCHC RDW Lymph % (Auto) [facility] % (Auto) Lymph # Seg Neutrophils % Seg Neuts % (Manual) Lymphocytes % (Manual) Monocytes % (Manual) Lymphocytes # (Manual) PT 23.7 H 21.3 H INR 2.11 H 1.85 H Sodium Chloride Carbon Dioxide Glucose 110 H Calcium Magnesium Albumin 11/16/16 11/16/16 11/17/16 04:48 14:52 05:01 RBC MCV MCH MCHC RDW Lymph % (Auto) [facility] % (Auto) Lymph # Seg Neutrophils % Seg Neuts % (Manual) Lymphocytes % (Manual) Monocytes % (Manual) Lymphocytes # (Manual) PT 22.0 H 26.7 H INR 1.92 H 2.45 H Sodium Chloride 97.3 L Carbon Dioxide Glucose 125 H Calcium 8.0 L Magnesium 1.6 L Albumin 11/17/16 11/17/16 08:00 08:00 RBC MCV 79 L MCH 24 L MCHC 31 L RDW Lymph % (Auto) 8.8 L [facility] % (Auto) 12.9 H Lymph # 0.5 L Seg Neutrophils % 76.0 H Seg Neuts % (Manual) Lymphocytes % (Manual) Monocytes % (Manual) Lymphocytes # (Manual) PT INR Sodium 136 L Chloride 95.7 L Carbon Dioxide 31 H Glucose 110 H Calcium 8.0 L Magnesium Albumin 2.6 L
--- NOTE | 2016-11-17 10:01 | Progress Note ---
Assessment and Plan Pleural effusion CHF exacerbation, systolic Hx of coronary artery disease Hx of predominantly nonischemic cardiomyopathy EF 25-30% on echo 08/2016 Hx of mechanical aortic valve replacement on Coumadin therapy Presence of AICD Pulmonary HTN Echocardiogram done 08/2016 reports a severe cardiomyopathy, ejection fraction 25-30%, well-functioning mechanical aortic valve, and severe pulmonary hypertension with primary artery systolic pressure 83. Continue medical therapy for systolic heart failure. Continue trial of IV milrinone for an additional 24hrs. Strict Is and Os. Daily weights. Subjective Date of service: 11/17/16 Interval history: Shortness of breath is improving. Continues on IV milrinone. Objective Vital Signs Temp Pulse Pulse Resp BP Pulse Ox 11/17/16 09:24 114 H 127/78 11/17/16 08:51 100 11/17/16 07:30 98 H 24 113/72 11/17/16 07:20 97 H 27 H 113/72 11/17/16 07:10 117 H 19 113/72 11/17/16 07:00 94 H 35 H 113/72 11/17/16 06:52 96 H 21 113/72 11/17/16 06:40 91 H 26 H 113/72 11/17/16 06:30 92 H 30 H 113/72 11/17/16 06:20 92 H 16 113/72 11/17/16 06:10 104 H 29 H 113/72 91 11/17/16 06:00 101 H 24 111/77 11/17/16 05:50 114 H 35 H 111/77 11/17/16 05:40 97 H 12 111/77 11/17/16 05:30 112 H 30 H 111/77 11/17/16 05:20 95 H 27 H 111/77 11/17/16 05:10 93 H 30 H 111/77 11/17/16 05:00 93 H 26 H 111/77 11/17/16 04:50 94 H 22 111/77 11/17/16 04:40 89 20 111/77 11/17/16 04:30 93 H 24 111/77 11/17/16 04:20 93 H 24 111/77 11/17/16 04:10 109 H 21 111/77 11/17/16 04:00 97.4 F L 100 H 21 113/67 11/17/16 03:50 100 H 29 H 113/67 11/17/16 03:40 98 H 24 113/67 11/17/16 03:30 96 H 30 H 113/67 11/17/16 03:20 95 H 27 H 113/67 11/17/16 03:10 101 H 26 H 113/67 11/17/16 03:00 89 25 H 113/67 11/17/16 02:50 94 H 25 H 113/67 11/17/16 02:40 94 H 24 113/67 11/17/16 02:30 91 H 25 H 113/67 11/17/16 02:20 93 H 28 H 113/67 11/17/16 02:10 99 H 27 H 113/67 11/17/16 02:00 100 H 19 113/67 11/17/16 01:50 92 H 24 113/67 11/17/16 01:40 89 22 113/67 11/17/16 01:30 91 H 16 113/67 11/17/16 01:20 94 H 24 113/67 11/17/16 01:10 87 22 113/67 11/17/16 01:00 91 H 25 H 113/67 11/17/16 00:50 98 H 24 113/67 11/17/16 00:40 98 H 23 113/67 11/17/16 00:30 113 H 18 113/67 11/17/16 00:20 103 H 24 113/67 11/17/16 00:10 91 H 19 113/67 11/17/16 00:00 94 H 23 113/67 11/16/16 23:50 92 H 17 113/67 11/16/16 23:40 85 25 H 113/67 11/16/16 23:30 100 H 27 H 113/67 11/16/16 23:20 101 H 25 H 113/67 11/16/16 23:10 87 30 H 113/67 11/16/16 23:00 101 H 28 H 113/67 11/16/16 22:50 94 H 27 H 113/67 11/16/16 22:40 102 H 21 113/67 11/16/16 22:30 93 H 20 113/67 11/16/16 22:24 92 H 28 H 113/67 11/16/16 22:00 97 H 74 19 113/67 11/16/16 21:32 98.8 F 02/16/17 21:30 88 113/67 11/16/16 20:00 104 H 19 113/67 11/16/16 18:10 102 H 29 H 113/67 11/16/16 18:00 93 H 19 113/67 11/16/16 17:50 111 H 13 113/67 11/16/16 17:40 103 H 26 H 113/67 11/16/16 17:30 95 H 23 113/67 11/16/16 17:20 98 H 27 H 113/67 11/16/16 17:10 97 H 23 113/67 11/16/16 17:00 94 H 14 113/67 11/16/16 16:50 99 H 30 H 113/67 11/16/16 16:40 100 H 26 H 113/67 11/16/16 16:31 92 H 15 113/67 11/16/16 16:20 100 H 29 H 113/67 11/16/16 16:10 89 15 125/58 11/16/16 16:00 98.0 F 91 H 24 125/58 11/16/16 15:50 94 H 21 125/58 11/16/16 15:40 85 23 125/58 11/16/16 15:30 95 H 19 125/58 11/16/16 15:20 91 H 30 H 125/58 11/16/16 15:10 91 H 30 H 125/58 11/16/16 15:00 97 H 26 H 125/58 11/16/16 14:50 103 H 24 125/58 11/16/16 14:40 89 23 125/58 11/16/16 14:30 91 H 22 125/58 11/16/16 14:20 97 H 21 125/58 11/16/16 14:00 106 H 19 125/58 11/16/16 13:30 99 H 25 H 125/58 11/16/16 13:00 102 H 21 125/58 11/16/16 12:30 103 H 24 125/58 11/16/16 12:00 98.1 F 98 H 22 125/58 11/16/16 11:30 113 H 25 H 125/58 11/16/16 11:00 91 H 15 125/58 11/16/16 10:30 101 H 23 125/58 11/16/16 10:06 99 H 125/58 - Physical Examination General: No Apparent Distress HEENT: Positive: PERRL Neck: Positive: neck supple Cardiac: Positive: Other (paced) Neuro: Positive: Grossly Intact Abdomen: Positive: Soft Skin: Positive: Clear Extremities: Present: +1 Edema - Labs and Meds Cardiac Enzymes 11/17/16 Range/Units 08:00 AST 31 (5-40) units/L Coagulation 11/17/16 Range/Units 05:01 PT 26.7 H (12.2-14.9) Sec. INR 2.45 H (0.87-1.13) CBC 11/17/16 Range/Units 08:00 WBC 5.6 (4.5-11.0) K/mm3 RBC 4.84 (3.65-5.03) M/mm3 Hgb 11.8 (11.8-15.2) gm/dl Hct 38.4 (35.5-45.6) % Plt Count 183 (140-440) K/mm3 Lymph # 0.5 L (1.2-5.4) K/mm3 [place] # 0.7 (0.0-0.8) K/mm3 Eos # 0.1 (0.0-0.4) K/mm3 Baso # 0.0 (0.0-0.1) K/mm3 Comprehensive Metabolic Panel 11/16/16 11/17/16 Range/Units 14:52 08:00 Sodium 137 136 L (137-145) mmol/L Potassium 4.6 3.8 (3.6-5.0) mmol/L Chloride 97.3 L 95.7 L (98-107) mmol/L Carbon Dioxide 30 31 H (22-30) mmol/L BUN 12 11 (9-20) mg/dL Creatinine 1.0 0.9 (0.8-1.5) mg/dL Glucose 125 H 110 H (75-100) mg/dL Calcium 8.0 L 8.0 L (8.4-10.2) mg/dL AST 31 (5-40) units/L ALT 12 (7-56) units/L Alkaline Phosphatase 66 (35-129) units/L Total Protein 6.3 (6.3-8.2) g/dL Albumin 2.6 L (3.9-5) g/dL Pacemaker: ventricular pacing w/capt
--- NOTE | 2016-11-17 10:02 | Progress Note ---
Assessment and Plan Pleural effusion CHF exacerbation, systolic Hx of coronary artery disease Hx of predominantly nonischemic cardiomyopathy EF 25-30% on echo 08/2016 Hx of mechanical aortic valve replacement on Coumadin therapy Presence of AICD Atrial flutter and fib on telemetry Pulmonary HTN Echocardiogram done 08/2016 reports a severe cardiomyopathy, ejection fraction 25-30%, well-functioning mechanical aortic valve, and severe pulmonary hypertension with primary artery systolic pressure 83. Recommendations: Continue medical therapy for systolic heart failure. Continue IV milrinone and IV lasix Lung exam is significantly improved compared to Sunday although CXR appears stable Transfer to telemetry floor when bed becomes available. Strict Is and Os. Daily weights. Subjective Date of service: 11/17/16 Principal diagnosis: CHF Interval history: Patient states that he is feeling better, diuresing well with resolution of his edema and improvement in shortness of breath Objective Vital Signs Temp Pulse Pulse Resp BP Pulse Ox 11/17/16 09:24 114 H 127/78 11/17/16 08:51 100 11/17/16 07:30 98 H 24 113/72 11/17/16 07:20 97 H 27 H 113/72 11/17/16 07:10 117 H 19 113/72 11/17/16 07:00 94 H 35 H 113/72 11/17/16 06:52 96 H 21 113/72 11/17/16 06:40 91 H 26 H 113/72 11/17/16 06:30 92 H 30 H 113/72 11/17/16 06:20 92 H 16 113/72 11/17/16 06:10 104 H 29 H 113/72 91 11/17/16 06:00 101 H 24 111/77 11/17/16 05:50 114 H 35 H 111/77 11/17/16 05:40 97 H 12 111/77 11/17/16 05:30 112 H 30 H 111/77 11/17/16 05:20 95 H 27 H 111/77 11/17/16 05:10 93 H 30 H 111/77 11/17/16 05:00 93 H 26 H 111/77 11/17/16 04:50 94 H 22 111/77 11/17/16 04:40 89 20 111/77 11/17/16 04:30 93 H 24 111/77 11/17/16 04:20 93 H 24 111/77 11/17/16 04:10 109 H 21 111/77 11/17/16 04:00 97.4 F L 100 H 21 113/67 11/17/16 03:50 100 H 29 H 113/67 11/17/16 03:40 98 H 24 113/67 11/17/16 03:30 96 H 30 H 113/67 11/17/16 03:20 95 H 27 H 113/67 11/17/16 03:10 101 H 26 H 113/67 11/17/16 03:00 89 25 H 113/67 11/17/16 02:50 94 H 25 H 113/67 11/17/16 02:40 94 H 24 113/67 11/17/16 02:30 91 H 25 H 113/67 11/17/16 02:20 93 H 28 H 113/67 11/17/16 02:10 99 H 27 H 113/67 11/17/16 02:00 100 H 19 113/67 11/17/16 01:50 92 H 24 113/67 11/17/16 01:40 89 22 113/67 11/17/16 01:30 91 H 16 113/67 11/17/16 01:20 94 H 24 113/67 11/17/16 01:10 87 22 113/67 11/17/16 01:00 91 H 25 H 113/67 11/17/16 00:50 98 H 24 113/67 11/17/16 00:40 98 H 23 113/67 11/17/16 00:30 113 H 18 113/67 11/17/16 00:20 103 H 24 113/67 11/17/16 00:10 91 H 19 113/67 11/17/16 00:00 94 H 23 113/67 11/16/16 23:50 92 H 17 113/67 11/16/16 23:40 85 25 H 113/67 11/16/16 23:30 100 H 27 H 113/67 11/16/16 23:20 101 H 25 H 113/67 11/16/16 23:10 87 30 H 113/67 11/16/16 23:00 101 H 28 H 113/67 11/16/16 22:50 94 H 27 H 113/67 11/16/16 22:40 102 H 21 113/67 11/16/16 22:30 93 H 20 113/67 11/16/16 22:24 92 H 28 H 113/67 11/16/16 22:00 97 H 74 19 113/67 11/16/16 21:32 98.8 F 11/16/16 21:30 88 113/67 11/16/16 20:00 104 H 19 113/67 11/16/16 18:10 102 H 29 H 113/67 11/16/16 18:00 93 H 19 113/67 11/16/16 17:50 111 H 13 113/67 11/16/16 17:40 103 H 26 H 113/67 11/16/16 17:30 95 H 23 113/67 11/16/16 17:20 98 H 27 H 113/67 11/16/16 17:10 97 H 23 113/67 11/16/16 17:00 94 H 14 113/67 11/16/16 16:50 99 H 30 H 113/67 11/16/16 16:40 100 H 26 H 113/67 11/16/16 16:31 92 H 15 113/67 11/16/16 16:20 100 H 29 H 113/67 11/16/16 16:10 89 15 125/58 11/16/16 16:00 98.0 F 91 H 24 125/58 11/16/16 15:50 94 H 21 125/58 11/16/16 15:40 85 23 125/58 11/16/16 15:30 95 H 19 125/58 11/16/16 15:20 91 H 30 H 125/58 11/16/16 15:10 91 H 30 H 125/58 11/16/16 15:00 97 H 26 H 125/58 11/16/16 14:50 103 H 24 125/58 11/16/16 14:40 89 23 125/58 11/16/16 14:30 91 H 22 125/58 11/16/16 14:20 97 H 21 125/58 11/16/16 14:00 106 H 19 125/58 11/16/16 13:30 99 H 25 H 125/58 11/16/16 13:00 102 H 21 125/58 11/16/16 12:30 103 H 24 125/58 11/16/16 12:00 98.1 F 98 H 22 125/58 11/16/16 11:30 113 H 25 H 125/58 11/16/16 11:00 91 H 15 11/16/16 10:30 101 H 23 125/11/16/16 10:06 99 H 11/16/16 10:00 99 H 20 - Physical Examination General: No Apparent Distress HEENT: Positive: PERRL Neck: Positive: neck supple Cardiac: Positive: irregularly irregular Lungs: Positive: Rales Neuro: Positive: Grossly Intact Abdomen: Positive: Soft Skin: Positive: Clear Extremities: Present: +1 Edema - Labs and Meds Cardiac Enzymes 11/17/16 Range/Units 08:00 AST 31 (5-40) units/L Coagulation 11/17/16 Range/Units 05:01 PT 26.7 H (12.2-14.9) Sec. INR 2.45 H (0.87-1.13) CBC 11/17/16 Range/Units 08:00 WBC 5.6 (4.5-11.0) K/mm3 RBC 4.84 (3.65-5.03) M/mm3 Hgb 11.8 (11.8-15.2) gm/dl Hct 38.4 (35.5-45.6) % Plt Count 183 (140-440) K/mm3 Lymph # 0.5 L (1.2-5.4) K/mm3 [place] # 0.7 (0.0-0.8) K/mm3 Eos # 0.1 (0.0-0.4) K/mm3 Baso # 0.0 (0.0-0.1) K/mm3 Comprehensive Metabolic Panel 11/16/16 11/17/16 Range/Units 14:52 08:00 Sodium 137 136 L (137-145) mmol/L Potassium 4.6 3.8 (3.6-5.0) mmol/L Chloride 97.3 L 95.7 L (98-107) mmol/L Carbon Dioxide 30 31 H (22-30) mmol/L BUN 12 11 (9-20) mg/dL Creatinine 1.0 0.9 (0.8-1.5) mg/dL Glucose 125 H 110 H (75-100) mg/dL Calcium 8.0 L 8.0 L (8.4-10.2) mg/dL AST 31 (5-40) units/L ALT 12 (7-56) units/L Alkaline Phosphatase 66 (35-129) units/L Total Protein 6.3 (6.3-8.2) g/dL Albumin 2.6 L (3.9-5) g/dL Pacemaker: ventricular pacing w/capt
[2016-11-17] MEDS ORDERED: SENOKOT S PO PRN (12:35)
[2016-11-17] MEDS ORDERED: HYDROMET PO PRN (12:35)
[2016-11-17] MEDS: XALATAN 0.005% OD SCH (17:07)
[2016-11-17] MEDS: COUMADIN PO SCH (17:07)
--- NOTE | 2016-11-17 21:29 | Progress Note ---
Assessment and Plan - Patient Problems (1) Acute respiratory failure with hypoxemia Current Visit: Yes Status: Acute Plan to address problem: supplemental oxygen, negs, aspiration precautions, pulmonary toilet, diuretic therapy, pulmonary consulted, wean oxygen as tolerate, monitor Sao2 The high probability of a clinically significant, sudden or life threatening deterioration of the [cardiac, pulmonary, renal] system(s) required my full and direct attention, intervention and personal management. The aggregate critical care time was [45] minutes. This time is in addition to time spent performing reported procedures but includes the following: [x] Data Review and interpretation [x] Patient assessment and monitoring of vital signs [x] Documentation [x] Medication orders and management (2) Recurrent right pleural effusion Current Visit: Yes Status: Acute Plan to address problem: Pulmonary consulted, diuretic therapy, supportive care, treat CHF, (3) CHF exacerbation Current Visit: No Status: Acute Qualifiers: Congestive heart failure type: unspecified congestive heart failure type Qualified Code(s): I50.9 - Heart failure, unspecified Plan to address problem: Cardiology consulted: CHF protocol, fluid restriction, low sodium diet, monitor uop w shift, daily weight, diuretic therapy, continue milrinone drip as per cardiology team. (4) Hypertension Current Visit: No Status: Acute Qualifiers: Hypertension type: H Plan to address problem: monitor bp q shift, continue current care (5) S/P AVR (aortic valve replacement) Current Visit: No Status: Acute Plan to address problem: continue current anticoagulation, (6) DVT prophylaxis Current Visit: Yes Status: Acute History Interval history: Pt resting comfortably sitting in chair, Pt denies pain. Pt states that his breathing is better since admission. Pt denies loose stools, or dark stools overnight. No reported nursing events overnight. Pt denies CP, Palpitations, NVD. Hospitalist Physical - Constitutional Vitals: Temp Pulse Resp BP Pulse Ox 98.4 F 88 18 118/66 98 11/17/16 20:00 11/17/16 20:00 11/17/16 20:00 11/17/16 20:00 11/17/16 20:00 General appearance: Present: no acute distress - EENT Eyes: Present: PERRL, EOM intact ENT: hearing intact - Neck Neck: Present: supple - Respiratory Respiratory: bilateral: diminished - Cardiovascular Rhythm: regular Heart Sounds: Present: S1 & S2 - Extremities Extremities: no ischemia Extremity abnormal: edema Peripheral Pulses: within normal limits - Abdominal General gastrointestinal: soft, non-tender, non-distended - Integumentary Integumentary: Present: clear, dry - Psychiatric Psychiatric: appropriate mood/affect, cooperative - Neurologic Neurologic: CNII-XII intact Results - Labs CBC & Chem 7: 11/17/16 08:00 11/17/16 08:00 Labs: Laboratory Last Values WBC 5.6 K/mm3 (4.5-11.0) 11/17/16 08:00 RBC 4.84 M/mm3 (3.65-5.03) 11/17/16 08:00 Hgb 11.8 gm/dl (11.8-15.2) 11/17/16 08:00 Hct 38.4 % (35.5-45.6) 11/17/16 08:00 MCV 79 fl (84-94) L 11/17/16 08:00 MCH 24 pg (28-32) L 11/17/16 08:00 MCHC 31 % (32-34) L 11/17/16 08:00 RDW 15.1 % (13.2-15.2) 11/17/16 08:00 Plt Count 183 K/mm3 (140-440) 11/17/16 08:00 Lymph % (Auto) 8.8 % (13.4-35.0) L 11/17/16 08:00 [place] % (Auto) 12.9 % (0.0-7.3) H 11/17/16 08:00 Eos % (Auto) 1.8 % (0.0-4.3) 11/17/16 08:00 Baso % (Auto) 0.5 % (0.0-1.8) 11/17/16 08:00 Lymph # 0.5 K/mm3 (1.2-5.4) L 11/17/16 08:00 [place] # 0.7 K/mm3 (0.0-0.8) 11/17/16 08:00 Eos # 0.1 K/mm3 (0.0-0.4) 11/17/16 08:00 Baso # 0.0 K/mm3 (0.0-0.1) 11/17/16 08:00 Add Manual Diff Complete 11/14/16 06:29 Total Counted 100 11/14/16 06:29 Seg Neutrophils % 76.0 % (40.0-70.0) H 11/17/16 08:00 Seg Neuts % (Manual) 78.0 % (40.0-70.0) H 11/14/16 06:29 Band Neutrophils % 0 % 11/14/16 06:29 Lymphocytes % (Manual) 7.0 % (13.4-35.0) L 11/14/16 06:29 Reactive Lymphs % (Man) 2.0 % 11/14/16 06:29 Monocytes % (Manual) 13.0 % (0.0-7.3) H 11/14/16 06:29 Eosinophils % (Manual) 0 % (0.0-4.3) 11/14/16 06:29 Basophils % (Manual) 0 % (0.0-1.8) 11/14/16 06:29 Metamyelocytes % 0 % 11/14/16 06:29 Myelocytes % 0 % 11/14/16 06:29 Promyelocytes % 0 % 11/14/16 06:29 Blast Cells % 0 % 11/14/16 06:29 Nucleated RBC % Not Reportable 11/14/16 06:29 Seg Neutrophils # 4.2 K/mm3 (1.8-7.7) 11/17/16 08:00 Seg Neutrophils # Man 3.7 K/mm3 (1.8-7.7) 11/14/16 06:29 Band Neutrophils # 0.0 K/mm3 11/14/16 06:29 Lymphocytes # (Manual) 0.3 K/mm3 (1.2-5.4) L 11/14/16 06:29 Abs React Lymphs (Man) 0.1 K/mm3 11/14/16 06:29 Monocytes # (Manual) 0.6 K/mm3 (0.0-0.8) 11/14/16 06:29 Eosinophils # (Manual) 0.0 K/mm3 (0.0-0.4) 11/14/16 06:29 Basophils # (Manual) 0.0 K/mm3 (0.0-0.1) 11/14/16 06:29 Metamyelocytes # 0.0 K/mm3 11/14/16 06:29 Myelocytes # 0.0 K/mm3 11/14/16 06:29 Promyelocytes # 0.0 K/mm3 11/14/16 06:29 Blast Cells # 0.0 K/mm3 11/14/16 06:29 WBC Morphology Not Reportable 11/14/16 06:29 Hypersegmented Neuts Not Reportable 11/14/16 06:29 Hyposegmented Neuts Not Reportable 11/14/16 06:29 Hypogranular Neuts Not Reportable 11/14/16 06:29 Smudge Cells Not Reportable 11/14/16 06:29 Toxic Granulation Not Reportable 11/14/16 06:29 Toxic Vacuolation Not Reportable 11/14/16 06:29 Dohle Bodies Not Reportable 11/14/16 06:29 Pelger-Huet Anomaly Not Reportable 11/14/16 06:29 Cuauhtemoc Rods Not Reportable 11/14/16 06:29 Platelet Estimate Appears normal 11/14/16 06:29 Clumped Platelets Not Reportable 11/14/16 06:29 Plt Clumps, EDTA Not Reportable 11/14/16 06:29 Large Platelets Not Reportable 11/14/16 06:29 Giant Platelets Not Reportable 11/14/16 06:29 Platelet Satelliting Not Reportable 11/14/16 06:29 Plt Morphology Comment Not Reportable 11/14/16 06:29 RBC Morphology Not Reportable 11/14/16 06:29 Dimorphic RBCs Not Reportable 11/14/16 06:29 Polychromasia Few 11/14/16 06:29 Hypochromasia Not Reportable 11/14/16 06:29 Poikilocytosis Not Reportable 11/14/16 06:29 Anisocytosis 1+ 11/14/16 06:29 Microcytosis Not Reportable 11/14/16 06:29 Macrocytosis Not Reportable 11/14/16 06:29 Spherocytes Not Reportable 11/14/16 06:29 Pappenheimer Bodies Not Reportable 11/14/16 06:29 Sickle Cells Not Reportable 11/14/16 06:29 Target Cells Not Reportable 11/14/16 06:29 Tear Drop Cells Not Reportable 11/14/16 06:29 Ovalocytes Few 11/14/16 06:29 Stomatocytes Rare 11/14/16 06:29 Helmet Cells Not Reportable 11/14/16 06:29 Garcia-[place] Bodies Not Reportable 11/14/16 06:29 [place] Rings Not Reportable 11/14/16 06:29 Johnny Cells Not Reportable 11/14/16 06:29 Bite Cells Not Reportable 11/14/16 06:29 Crenated Cell Not Reportable 11/14/16 06:29 Elliptocytes Not Reportable 11/14/16 06:29 Acanthocytes (Spur) Not Reportable 11/14/16 06:29 Rouleaux Not Reportable 11/14/16 06:29 Hemoglobin C Crystals Not Reportable 11/14/16 06:29 Schistocytes Not Reportable 11/14/16 06:29 Malaria parasites Not Reportable 11/14/16 06:29 Rom Bodies Not Reportable 11/14/16 06:29 Hem Pathologist Commnt No 11/14/16 06:29 PT 26.7 Sec. (12.2-14.9) H 11/17/16 05:01 INR 2.45 (0.87-1.13) H 11/17/16 05:01 APTT 36.6 Sec. (24.2-36.6) 11/13/16 12:49 Sodium 136 mmol/L (137-145) L 11/17/16 08:00 Potassium 3.8 mmol/L (3.6-5.0) 11/17/16 08:00 Chloride 95.7 mmol/L (98-107) L 11/17/16 08:00 Carbon Dioxide 31 mmol/L (22-30) H 11/17/16 08:00 Anion Gap 13 mmol/L 11/17/16 08:00 BUN 11 mg/dL (9-20) 11/17/16 08:00 Creatinine 0.9 mg/dL (0.8-1.5) 11/17/16 08:00 Estimated GFR > 60 ml/min 11/17/16 08:00 BUN/Creatinine Ratio 12.22 % 11/17/16 08:00 Glucose 110 mg/dL (75-100) H 11/17/16 08:00 Hemoglobin A1c 6.0 % (4-6) 11/13/16 19:09 Calcium 8.0 mg/dL (8.4-10.2) L 11/17/16 08:00 Magnesium 1.6 mg/dL (1.7-2.3) L 11/16/16 14:52 Total Bilirubin 0.7 mg/dL (0.1-1.2) 11/17/16 08:00 AST 31 units/L (5-40) 11/17/16 08:00 ALT 12 units/L (7-56) 11/17/16 08:00 Alkaline Phosphatase 66 units/L (35-129) 11/17/16 08:00 Total Creatine Kinase 194 units/L (55-170) H 11/13/16 12:49 CK-MB (CK-2) 4.3 ng/mL (0.0-4.0) H 11/13/16 12:49 CK-MB (CK-2) Rel Index 2.2 (0-4) 11/13/16 12:49 Troponin T < 0.010 ng/mL (0.00-0.029) 11/13/16 12:49 NT-Pro-B Natriuret Pep 2419 pg/mL (0-900) H 11/13/16 12:49 Total Protein 6.3 g/dL (6.3-8.2) 11/17/16 08:00 Albumin 2.6 g/dL (3.9-5) L 11/17/16 08:00 Albumin/Globulin Ratio 0.7 % 11/17/16 08:00 Blood Type B POSITIVE 11/13/16 12:49 Antibody Screen Negative 11/13/16 12:49
[2016-11-18] MEDS: DILAUDID IV PRN ×5 (01:36→23:43)
[2016-11-18] MEDS: LASIX IV SCH ×2 (06:10→17:46)
[2016-11-18 07:18] LABS: INR 3.47 (0.87-1.13)
--- NOTE | 2016-11-18 08:51 | Progress Note ---
Assessment and Plan 65 y/o male with known systolic heart failure admitted with dyspnea on exertion and hypoxemia. 1. Hold on thoracentesis given improvement in symptoms, would try to keep net negative at least 1000cc's 2. Inotropic therapy per cards 3. Will continue to follow along with you. Subjective Date of service: 11/18/16 Principal diagnosis: CHF Interval history: Transferred to [facility] as bed became available. Per report, on Milrinone until this afternoon. Breathing is stable Objective Vital Signs - 12hr 11/17/16 11/17/16 11/17/16 21:35 21:46 21:48 Temperature Pulse Rate 88 Pulse Rate [ Right Radial] Respiratory 20 Rate Respiratory 20 Rate [ Generalized] Blood Pressure 118/66 Blood Pressure [Right Arm] O2 Sat by Pulse Oximetry 11/17/16 11/17/16 11/17/16 22:16 23:37 23:45 Temperature 97.9 F Pulse Rate Pulse Rate [ 84 Right Radial] Respiratory 20 20 20 Rate Respiratory Rate [ Generalized] Blood Pressure Blood Pressure 118/68 [Right Arm] O2 Sat by Pulse 99 Oximetry 11/18/16 11/18/16 11/18/16 01:36 02:06 04:15 Temperature 97.8 F Pulse Rate Pulse Rate [ 94 H Right Radial] Respiratory 20 20 22 Rate Respiratory Rate [ Generalized] Blood Pressure Blood Pressure 104/66 [Right Arm] O2 Sat by Pulse 96 Oximetry Constitutional: no acute distress, alert Eyes: non-icteric ENT: oropharynx moist Neck: supple Ascultation: Right: rales (improved), Bilateral: clear (anteriorly) Cardiovascular: regular rate and rhythm Gastrointestinal: normoactive bowel sounds Extremities: no cyanosis, no edema Neurologic: normal mental status, CN II-XII normal Psychiatric: mood appropriate CBC and BMP: 11/17/16 08:00 11/17/16 08:00 ABG, PT/INR, D-dimer: PT/INR, D-dimer PT 35.2 Sec. (12.2-14.9) H 11/18/16 06:11 INR 3.47 (0.87-1.13) H 11/18/16 06:11 Abnormal lab findings: Abnormal Labs 11/13/16 11/13/16 11/14/16 19:09 19:09 06:29 RBC 5.24 H 5.05 H MCV 79 L 81 L MCH 25 L 24 L MCHC 31 L 30 L RDW 15.3 H 15.5 H Lymph % (Auto) 11.1 L [place] % (Auto) 12.6 H Lymph # 0.5 L Seg Neutrophils % 74.5 H Seg Neuts % (Manual) 78.0 H Lymphocytes % (Manual) 7.0 L Monocytes % (Manual) 13.0 H Lymphocytes # (Manual) 0.3 L PT INR Sodium 135 L Chloride 94.9 L Carbon Dioxide Glucose 108 H Calcium 8.2 L Magnesium Albumin 3.0 L 11/14/16 11/14/16 11/15/16 06:29 12:48 05:35 RBC MCV MCH MCHC RDW Lymph % (Auto) [place] % (Auto) Lymph # Seg Neutrophils % Seg Neuts % (Manual) Lymphocytes % (Manual) Monocytes % (Manual) Lymphocytes # (Manual) PT 23.7 H 21.3 H INR 2.11 H 1.85 H Sodium Chloride Carbon Dioxide Glucose 110 H Calcium Magnesium Albumin 11/16/16 11/16/16 11/17/16 04:48 14:52 05:01 RBC MCV MCH MCHC RDW Lymph % (Auto) [place] % (Auto) Lymph # Seg Neutrophils % Seg Neuts % (Manual) Lymphocytes % (Manual) Monocytes % (Manual) Lymphocytes # (Manual) PT 22.0 H 26.7 H INR 1.92 H 2.45 H Sodium Chloride 97.3 L Carbon Dioxide Glucose 125 H Calcium 8.0 L Magnesium 1.6 L Albumin 11/17/16 11/17/16 11/18/16 08:00 08:00 06:11 RBC MCV 79 L MCH 24 L MCHC 31 L RDW Lymph % (Auto) 8.8 L [place] % (Auto) 12.9 H Lymph # 0.5 L Seg Neutrophils % 76.0 H Seg Neuts % (Manual) Lymphocytes % (Manual) Monocytes % (Manual) Lymphocytes # (Manual) PT 35.2 H INR 3.47 H Sodium 136 L Chloride 95.7 L Carbon Dioxide 31 H Glucose 110 H Calcium 8.0 L Magnesium Albumin 2.6 L
--- NOTE | 2016-11-18 09:44 | Progress Note ---
Assessment and Plan Pleural effusion CHF exacerbation, systolic Hx of coronary artery disease Hx of predominantly nonischemic cardiomyopathy EF 25-30% on echo 08/2016 Hx of mechanical aortic valve replacement on Coumadin therapy Presence of AICD Atrial flutter and fib on telemetry Pulmonary HTN NSVT Echocardiogram done 08/2016 reports a severe cardiomyopathy, ejection fraction 25-30%, well-functioning mechanical aortic valve, and severe pulmonary hypertension with primary artery systolic pressure 83. Recommendations: Continue medical therapy for systolic heart failure. Continue IV milrinone and IV lasix Add metolazone to current regimen Monitor electrolytes closely Start amiodarone for frequent episodes of NSVT INR > 2 - hold today Strict Is and Os. Daily weights. Subjective Date of service: 11/18/16 Principal diagnosis: CHF Interval history: Patient states that he is feeling better but he has noticed worsening ankle swelling since yesterday Telemetry is showing frequent episodes of NSVT Objective Vital Signs Temp Pulse Pulse Pulse Pulse Resp Resp 11/18/16 09:39 11/18/16 04:15 97.8 F 94 H 22 11/18/16 02:06 20 11/18/16 01:36 20 11/17/16 23:45 97.9 F 84 20 11/17/16 23:37 20 11/17/16 22:16 20 11/17/16 21:48 88 11/17/16 21:46 20 11/17/16 21:35 20 11/17/16 20:00 98.4 F 90 88 20 11/17/16 19:29 90 11/17/16 17:00 97.8 F 97 H 24 11/17/16 16:00 87 17 11/17/16 15:00 91 H 14 11/17/16 14:00 89 19 11/17/16 13:00 98.1 F 99 H 18 11/17/16 12:57 11/17/16 12:00 97 H 28 H 11/17/16 11:00 98 H 25 H 11/17/16 10:00 99 H 24 BP BP BP Pulse Ox 11/18/16 09:39 93 11/18/16 04:15 104/66 96 11/18/16 02:06 11/18/16 01:36 11/17/16 23:45 118/68 99 11/17/16 23:37 11/17/16 22:16 11/17/16 21:48 118/66 11/17/16 21:46 11/17/16 21:35 11/17/16 20:00 118/66 98 11/17/16 19:29 11/17/16 17:00 129/73 86 11/17/16 16:00 129/73 11/17/16 15:00 129/73 11/17/16 14:00 129/73 11/17/16 13:00 129/73 97 11/17/16 12:57 129/73 84 11/17/16 12:00 121/62 11/17/16 11:00 121/62 11/17/16 10:00 121/62 - Physical Examination General: No Apparent Distress HEENT: Positive: PERRL Neck: Positive: neck supple Cardiac: Positive: Reg Rate and Rhythm Lungs: Positive: Decreased Breath Sounds Neuro: Positive: Grossly Intact Abdomen: Positive: Soft Skin: Positive: Clear Extremities: Present: +1 Edema - Labs and Meds Coagulation 11/18/16 Range/Units 06:11 PT 35.2 H (12.2-14.9) Sec. INR 3.47 H (0.87-1.13) Pacemaker: ventricular pacing w/capt
[2016-11-18] MEDS: COREG PO SCH ×2 (10:37→22:50)
[2016-11-18] MEDS: PROTONIX PO SCH (10:38)
[2016-11-18] MEDS: K-DUR PO SCH (10:38)
[2016-11-18] MEDS: ZAROXOLYN PO SCH (10:38)
[2016-11-18] MEDS: CORDARONE PO SCH ×2 (10:38→22:50)
[2016-11-18] MEDS: COZAAR PO SCH (10:38)
[2016-11-18 17:25] LABS: Anion Gap 18 mmol/L; Blood Urea Nitrogen 13 mg/dL (9-20); Carbon Dioxide 27 mmol/L (22-30); Chloride 90.8 mmol/L (98-107); Glucose 123 mg/dL (75-100); Magnesium 1.6 mg/dL (1.7-2.3); Potassium 4.4 mmol/L (3.6-5.0); Sodium 131 mmol/L (137-145)
[2016-11-18] MEDS: COUMADIN PO SCH ×2 (17:46)
[2016-11-18] MEDS: XALATAN 0.005% OD SCH (18:33)
[2016-11-19] MEDS: DILAUDID IV PRN ×4 (03:59→21:26)
[2016-11-19 05:40] LABS: INR 3.84 (0.87-1.13)
[2016-11-19] MEDS: LASIX IV SCH ×2 (06:17→17:11)
--- NOTE | 2016-11-19 07:57 | Progress Note ---
Assessment and Plan - Patient Problems (1) Acute respiratory failure with hypoxemia Current Visit: Yes Status: Acute Plan to address problem: supplemental oxygen, nebs, aspiration precautions, pulmonary toilet, diuretic therapy, pulmonary consulted, wean oxygen as tolerate, monitor Sao2 (2) Recurrent right pleural effusion Current Visit: Yes Status: Acute Plan to address problem: Pulmonary consulted, diuretic therapy, supportive care, treat CHF, (3) CHF exacerbation Current Visit: No Status: Acute Qualifiers: Congestive heart failure type: unspecified congestive heart failure type Qualified Code(s): I50.9 - Heart failure, unspecified Plan to address problem: Cardiology consulted: CHF protocol, fluid restriction, low sodium diet, monitor uop w shift, daily weight, diuretic therapy, continue milrinone drip as per cardiology team. (4) Hypertension Current Visit: No Status: Acute Qualifiers: Hypertension type: H Plan to address problem: monitor bp q shift, continue current care (5) S/P AVR (aortic valve replacement) Current Visit: No Status: Acute Plan to address problem: continue current anticoagulation, (6) DVT prophylaxis Current Visit: Yes Status: Acute History Interval history: Pt resting comfortably sitting in chair, Pt denies pain. reported nursing events overnight. Pt denies CP, Palpitations, NVD. Milrinone drip in place. Hospitalist Physical - Constitutional Vitals: Temp Pulse Resp BP Pulse Ox 97.4 F L 76 22 114/86 98 11/19/16 03:54 11/19/16 03:54 11/19/16 04:29 11/19/16 03:54 11/19/16 03:54 General appearance: Present: no acute distress - EENT Eyes: Present: PERRL, EOM intact ENT: hearing intact - Neck Neck: Present: supple - Respiratory Respiratory: bilateral: diminished - Cardiovascular Rhythm: regular Heart Sounds: Present: S1 & S2 - Extremities Extremities: no ischemia, pulses symmetrical Extremity abnormal: edema Peripheral Pulses: within normal limits - Abdominal General gastrointestinal: soft, non-tender, non-distended - Integumentary Integumentary: Present: clear, dry - Psychiatric Psychiatric: appropriate mood/affect, cooperative - Neurologic Neurologic: CNII-XII intact Results - Labs CBC & Chem 7: 11/17/16 08:00 11/18/16 13:54 Labs: Laboratory Last Values WBC 5.6 K/mm3 (4.5-11.0) 11/17/16 08:00 RBC 4.84 M/mm3 (3.65-5.03) 11/17/16 08:00 Hgb 11.8 gm/dl (11.8-15.2) 11/17/16 08:00 Hct 38.4 % (35.5-45.6) 11/17/16 08:00 MCV 79 fl (84-94) L 11/17/16 08:00 MCH 24 pg (28-32) L 11/17/16 08:00 MCHC 31 % (32-34) L 11/17/16 08:00 RDW 15.1 % (13.2-15.2) 11/17/16 08:00 Plt Count 183 K/mm3 (140-440) 11/17/16 08:00 Lymph % (Auto) 8.8 % (13.4-35.0) L 11/17/16 08:00 [place] % (Auto) 12.9 % (0.0-7.3) H 11/17/16 08:00 Eos % (Auto) 1.8 % (0.0-4.3) 11/17/16 08:00 Baso % (Auto) 0.5 % (0.0-1.8) 11/17/16 08:00 Lymph # 0.5 K/mm3 (1.2-5.4) L 11/17/16 08:00 [place] # 0.7 K/mm3 (0.0-0.8) 11/17/16 08:00 Eos # 0.1 K/mm3 (0.0-0.4) 11/17/16 08:00 Baso # 0.0 K/mm3 (0.0-0.1) 11/17/16 08:00 Add Manual Diff Complete 11/14/16 06:29 Total Counted 100 11/14/16 06:29 Seg Neutrophils % 76.0 % (40.0-70.0) H 11/17/16 08:00 Seg Neuts % (Manual) 78.0 % (40.0-70.0) H 11/14/16 06:29 Band Neutrophils % 0 % 11/14/16 06:29 Lymphocytes % (Manual) 7.0 % (13.4-35.0) L 11/14/16 06:29 Reactive Lymphs % (Man) 2.0 % 11/14/16 06:29 Monocytes % (Manual) 13.0 % (0.0-7.3) H 11/14/16 06:29 Eosinophils % (Manual) 0 % (0.0-4.3) 11/14/16 06:29 Basophils % (Manual) 0 % (0.0-1.8) 11/14/16 06:29 Metamyelocytes % 0 % 11/14/16 06:29 Myelocytes % 0 % 11/14/16 06:29 Promyelocytes % 0 % 11/14/16 06:29 Blast Cells % 0 % 11/14/16 06:29 Nucleated RBC % Not Reportable 11/14/16 06:29 Seg Neutrophils # 4.2 K/mm3 (1.8-7.7) 11/17/16 08:00 Seg Neutrophils # Man 3.7 K/mm3 (1.8-7.7) 11/14/16 06:29 Band Neutrophils # 0.0 K/mm3 11/14/16 06:29 Lymphocytes # (Manual) 0.3 K/mm3 (1.2-5.4) L 11/14/16 06:29 Abs React Lymphs (Man) 0.1 K/mm3 11/14/16 06:29 Monocytes # (Manual) 0.6 K/mm3 (0.0-0.8) 11/14/16 06:29 Eosinophils # (Manual) 0.0 K/mm3 (0.0-0.4) 11/14/16 06:29 Basophils # (Manual) 0.0 K/mm3 (0.0-0.1) 11/14/16 06:29 Metamyelocytes # 0.0 K/mm3 11/14/16 06:29 Myelocytes # 0.0 K/mm3 11/14/16 06:29 Promyelocytes # 0.0 K/mm3 11/14/16 06:29 Blast Cells # 0.0 K/mm3 11/14/16 06:29 WBC Morphology Not Reportable 11/14/16 06:29 Hypersegmented Neuts Not Reportable 11/14/16 06:29 Hyposegmented Neuts Not Reportable 11/14/16 06:29 Hypogranular Neuts Not Reportable 11/14/16 06:29 Smudge Cells Not Reportable 11/14/16 06:29 Toxic Granulation Not Reportable 11/14/16 06:29 Toxic Vacuolation Not Reportable 11/14/16 06:29 Dohle Bodies Not Reportable 11/14/16 06:29 Pelger-Huet Anomaly Not Reportable 11/14/16 06:29 Cuauhtemoc Rods Not Reportable 11/14/16 06:29 Platelet Estimate Appears normal 11/14/16 06:29 Clumped Platelets Not Reportable 11/14/16 06:29 Plt Clumps, EDTA Not Reportable 11/14/16 06:29 Large Platelets Not Reportable 11/14/16 06:29 Giant Platelets Not Reportable 11/14/16 06:29 Platelet Satelliting Not Reportable 11/14/16 06:29 Plt Morphology Comment Not Reportable 11/14/16 06:29 RBC Morphology Not Reportable 11/14/16 06:29 Dimorphic RBCs Not Reportable 11/14/16 06:29 Polychromasia Few 11/14/16 06:29 Hypochromasia Not Reportable 11/14/16 06:29 Poikilocytosis Not Reportable 11/14/16 06:29 Anisocytosis 1+ 11/14/16 06:29 Microcytosis Not Reportable 11/14/16 06:29 Macrocytosis Not Reportable 11/14/16 06:29 Spherocytes Not Reportable 11/14/16 06:29 Pappenheimer Bodies Not Reportable 11/14/16 06:29 Sickle Cells Not Reportable 11/14/16 06:29 Target Cells Not Reportable 11/14/16 06:29 Tear Drop Cells Not Reportable 11/14/16 06:29 Ovalocytes Few 11/14/16 06:29 Stomatocytes Rare 11/14/16 06:29 Helmet Cells Not Reportable 11/14/16 06:29 [place] Bodies Not Reportable 11/14/16 06:29 [place] Rings Not Reportable 11/14/16 06:29 [place] Cells Not Reportable 11/14/16 06:29 Bite Cells Not Reportable 11/14/16 06:29 Crenated Cell Not Reportable 11/14/16 06:29 Elliptocytes Not Reportable 11/14/16 06:29 Acanthocytes (Spur) Not Reportable 11/14/16 06:29 Rouleaux Not Reportable 11/14/16 06:29 Hemoglobin C Crystals Not Reportable 11/14/16 06:29 Schistocytes Not Reportable 11/14/16 06:29 Malaria parasites Not Reportable 11/14/16 06:29 Rom Bodies Not Reportable 11/14/16 06:29 Hem Pathologist Commnt No 11/14/16 06:29 PT 38.1 Sec. (12.2-14.9) H 11/19/16 05:13 INR 3.84 (0.87-1.13) H 11/19/16 05:13 APTT 36.6 Sec. (24.2-36.6) 11/13/16 12:49 Sodium 131 mmol/L (137-145) L 11/18/16 13:54 Potassium 4.4 mmol/L (3.6-5.0) 11/18/16 13:54 Chloride 90.8 mmol/L (98-107) L 11/18/16 13:54 Carbon Dioxide 27 mmol/L (22-30) 11/18/16 13:54 Anion Gap 18 mmol/L 11/18/16 13:54 BUN 13 mg/dL (9-20) 11/18/16 13:54 Creatinine 1.0 mg/dL (0.8-1.5) 11/18/16 13:54 Estimated GFR > 60 ml/min 11/18/16 13:54 BUN/Creatinine Ratio 13.00 % 11/18/16 13:54 Glucose 123 mg/dL (75-100) H 11/18/16 13:54 Hemoglobin A1c 6.0 % (4-6) 11/13/16 19:09 Calcium 8.0 mg/dL (8.4-10.2) L 11/18/16 13:54 Magnesium 1.6 mg/dL (1.7-2.3) L 11/18/16 13:54 Total Bilirubin 0.7 mg/dL (0.1-1.2) 11/17/16 08:00 AST 31 units/L (5-40) 11/17/16 08:00 ALT 12 units/L (7-56) 11/17/16 08:00 Alkaline Phosphatase 66 units/L (35-129) 11/17/16 08:00 Total Creatine Kinase 194 units/L (55-170) H 11/13/16 12:49 CK-MB (CK-2) 4.3 ng/mL (0.0-4.0) H 11/13/16 12:49 CK-MB (CK-2) Rel Index 2.2 (0-4) 11/13/16 12:49 Troponin T < 0.010 ng/mL (0.00-0.029) 11/13/16 12:49 NT-Pro-B Natriuret Pep 2419 pg/mL (0-900) H 11/13/16 12:49 Total Protein 6.3 g/dL (6.3-8.2) 11/17/16 08:00 Albumin 2.6 g/dL (3.9-5) L 11/17/16 08:00 Albumin/Globulin Ratio 0.7 % 11/17/16 08:00 Blood Type B POSITIVE 11/13/16 12:49 Antibody Screen Negative 11/13/16 12:49
--- NOTE | 2016-11-19 08:03 | Progress Note ---
Assessment and Plan 65 y/o male with known systolic heart failure admitted with dyspnea on exertion and hypoxemia. 1. Continue net negative state 2. Inotropic therapy per cards 3. Diuresis per cards 4. Repeat CXR today 5. Will continue to follow along with you. Doubt patient will need thoracentesis as long as he can tolerate aggressive diuresis. Subjective Date of service: 11/19/16 Principal diagnosis: CHF Interval history: No acute events. Still on milrinone. Cards started metalozone on yesterday. Objective Vital Signs - 12hr 11/18/16 11/18/16 11/18/16 20:16 20:20 20:21 Temperature Pulse Rate Pulse Rate [ 86 Apical] Pulse Rate [ Left Radial] Pulse Rate [ Right Radial] Respiratory 20 22 Rate Respiratory 20 Rate [ Generalized] Blood Pressure Blood Pressure [Left Arm] Blood Pressure [Right Arm] O2 Sat by Pulse 98 Oximetry 11/18/16 11/18/16 11/18/16 20:46 20:47 22:50 Temperature 98.2 F Pulse Rate 71 Pulse Rate [ 71 Apical] Pulse Rate [ Left Radial] Pulse Rate [ Right Radial] Respiratory 22 20 Rate Respiratory Rate [ Generalized] Blood Pressure 114/67 Blood Pressure [Left Arm] Blood Pressure 114/67 [Right Arm] O2 Sat by Pulse 96 Oximetry 11/18/16 11/18/16 11/19/16 23:43 23:55 00:13 Temperature 97.8 F Pulse Rate Pulse Rate [ Apical] Pulse Rate [ Left Radial] Pulse Rate [ 94 H Right Radial] Respiratory 22 22 22 Rate Respiratory Rate [ Generalized] Blood Pressure Blood Pressure [Left Arm] Blood Pressure 128/86 [Right Arm] O2 Sat by Pulse 96 Oximetry 11/19/16 11/19/16 11/19/16 03:54 03:59 04:29 Temperature 97.4 F L Pulse Rate Pulse Rate [ Apical] Pulse Rate [ 76 Left Radial] Pulse Rate [ Right Radial] Respiratory 20 20 22 Rate Respiratory Rate [ Generalized] Blood Pressure Blood Pressure 114/86 [Left Arm] Blood Pressure [Right Arm] O2 Sat by Pulse 98 Oximetry Constitutional: no acute distress, alert Eyes: non-icteric ENT: oropharynx moist Neck: supple Ascultation: Right: rales (improved), Bilateral: clear (anteriorly) Cardiovascular: regular rate and rhythm Gastrointestinal: normoactive bowel sounds Extremities: no cyanosis, no edema Neurologic: normal mental status, CN II-XII normal Psychiatric: mood appropriate CBC and BMP: 11/17/16 08:00 11/18/16 13:54 ABG, PT/INR, D-dimer: PT/INR, D-dimer PT 38.1 Sec. (12.2-14.9) H 11/19/16 05:13 INR 3.84 (0.87-1.13) H 11/19/16 05:13 Abnormal lab findings: Abnormal Labs 11/13/16 11/13/16 11/14/16 19:09 19:09 06:29 RBC 5.24 H 5.05 H MCV 79 L 81 L MCH 25 L 24 L MCHC 31 L 30 L RDW 15.3 H 15.5 H Lymph % (Auto) 11.1 L [place] % (Auto) 12.6 H Lymph # 0.5 L Seg Neutrophils % 74.5 H Seg Neuts % (Manual) 78.0 H Lymphocytes % (Manual) 7.0 L Monocytes % (Manual) 13.0 H Lymphocytes # (Manual) 0.3 L PT INR Sodium 135 L Chloride 94.9 L Carbon Dioxide Glucose 108 H Calcium 8.2 L Magnesium Albumin 3.0 L 11/14/16 11/14/16 11/15/16 06:29 12:48 05:35 RBC MCV MCH MCHC RDW Lymph % (Auto) [place] % (Auto) Lymph # Seg Neutrophils % Seg Neuts % (Manual) Lymphocytes % (Manual) Monocytes % (Manual) Lymphocytes # (Manual) PT 23.7 H 21.3 H INR 2.11 H 1.85 H Sodium Chloride Carbon Dioxide Glucose 110 H Calcium Magnesium Albumin 11/16/16 11/16/16 11/17/16 04:48 14:52 05:01 RBC MCV MCH MCHC RDW Lymph % (Auto) [place] % (Auto) Lymph # Seg Neutrophils % Seg Neuts % (Manual) Lymphocytes % (Manual) Monocytes % (Manual) Lymphocytes # (Manual) PT 22.0 H 26.7 H INR 1.92 H 2.45 H Sodium Chloride 97.3 L Carbon Dioxide Glucose 125 H Calcium 8.0 L Magnesium 1.6 L Albumin 11/17/16 11/17/16 11/18/16 08:00 08:00 06:11 RBC MCV 79 L MCH 24 L MCHC 31 L RDW Lymph % (Auto) 8.8 L [place] % (Auto) 12.9 H Lymph # 0.5 L Seg Neutrophils % 76.0 H Seg Neuts % (Manual) Lymphocytes % (Manual) Monocytes % (Manual) Lymphocytes # (Manual) PT 35.2 H INR 3.47 H Sodium 136 L Chloride 95.7 L Carbon Dioxide 31 H Glucose 110 H Calcium 8.0 L Magnesium Albumin 2.6 L 11/18/16 11/19/16 13:54 05:13 RBC MCV MCH MCHC RDW Lymph % (Auto) [place] % (Auto) Lymph # Seg Neutrophils % Seg Neuts % (Manual) Lymphocytes % (Manual) Monocytes % (Manual) Lymphocytes # (Manual) PT 38.1 H INR 3.84 H Sodium 131 L Chloride 90.8 L Carbon Dioxide Glucose 123 H Calcium 8.0 L Magnesium 1.6 L Albumin
--- NOTE | 2016-11-19 08:56 | Progress Note ---
Assessment and Plan Pleural effusion Right > Left CHF exacerbation, systolic Hx of coronary artery disease Hx of predominantly nonischemic cardiomyopathy EF 25-30% on echo 08/2016 Hx of mechanical aortic valve replacement on Coumadin therapy Presence of AICD Atrial flutter and fib on telemetry Pulmonary HTN Frequent NSVT started on po amiodarone Echocardiogram done 08/2016 reports a severe cardiomyopathy, ejection fraction 25-30%, well-functioning mechanical aortic valve, and severe pulmonary hypertension with primary artery systolic pressure 83. Recommendations: Continue medical therapy for systolic heart failure. Monitor electrolytes closely CXR today If X-ray showing improvement in his effusion then he may be discharged home on Demadex 40 mg po daily and metolazone 5 mg po twice a week only and follow-up with AHA in 1 week Subjective Date of service: 11/19/16 Principal diagnosis: CHF Interval history: Feeling better Still has dullness and decreased breath sounds over the right base Objective Vital Signs Temp Pulse Pulse Pulse Pulse Resp Resp 11/19/16 04:29 22 11/19/16 03:59 20 11/19/16 03:54 97.4 F L 76 20 11/19/16 00:13 22 11/18/16 23:55 97.8 F 94 H 22 11/18/16 23:43 22 11/18/16 22:50 71 11/18/16 20:47 98.2 F 71 20 11/18/16 20:46 22 11/18/16 20:21 86 22 11/18/16 20:20 20 11/18/16 20:16 20 11/18/16 19:02 78 11/18/16 10:00 94 H 16 11/18/16 09:39 11/18/16 09:05 98.1 F 82 20 BP BP BP Pulse Ox 11/19/16 04:29 11/19/16 03:59 11/19/16 03:54 114/86 98 11/19/16 00:13 11/18/16 23:55 128/86 96 11/18/16 23:43 11/18/16 22:50 114/67 11/18/16 20:47 114/67 96 11/18/16 20:46 11/18/16 20:21 98 11/18/16 20:20 11/18/16 20:16 11/18/16 19:02 11/18/16 10:00 11/18/16 09:39 93 11/18/16 09:05 108/62 94 - Physical Examination General: No Apparent Distress HEENT: Positive: PERRL Neck: Positive: neck supple Cardiac: Positive: Reg Rate and Rhythm Lungs: Positive: Decreased Breath Sounds Neuro: Positive: Grossly Intact Abdomen: Positive: Soft Skin: Positive: Clear Extremities: Present: +1 Edema - Labs and Meds Coagulation 11/19/16 Range/Units 05:13 PT 38.1 H (12.2-14.9) Sec. INR 3.84 H (0.87-1.13) Comprehensive Metabolic Panel 11/18/16 Range/Units 13:54 Sodium 131 L (137-145) mmol/L Potassium 4.4 (3.6-5.0) mmol/L Chloride 90.8 L (98-107) mmol/L Carbon Dioxide 27 (22-30) mmol/L BUN 13 (9-20) mg/dL Creatinine 1.0 (0.8-1.5) mg/dL Glucose 123 H (75-100) mg/dL Calcium 8.0 L (8.4-10.2) mg/dL Pacemaker: ventricular pacing w/capt
--- NOTE | 2016-11-19 09:59 | XRay Report ---
Single view chest: Compared to 11/17/16. History: Pleural effusion. Findings: Cardiomegaly with bilateral pleural effusion , more right side. No significant interval change. Stable pacemaker. Impression: No significant interval change.
[2016-11-19] MEDS: PROTONIX PO SCH (10:00)
[2016-11-19] MEDS: K-DUR PO SCH (10:06)
[2016-11-19] MEDS: COREG PO SCH ×2 (10:06→21:27)
[2016-11-19] MEDS: ZAROXOLYN PO SCH (10:06)
[2016-11-19] MEDS: CORDARONE PO SCH ×2 (10:07→21:27)
[2016-11-19] MEDS: COZAAR PO SCH (10:07)
[2016-11-19 10:59] LABS: Anion Gap 16 mmol/L; BUN/Creatinine Ratio 14.54; Blood Urea Nitrogen 16 mg/dL (9-20); Calcium 8.4 mg/dL (8.4-10.2); Carbon Dioxide 32 mmol/L (22-30); Chloride 91.4 mmol/L (98-107); Glucose 95 mg/dL (75-100); Magnesium 1.6 mg/dL (1.7-2.3); Potassium 4.2 mmol/L (3.6-5.0); Sodium 135 mmol/L (137-145)
--- NOTE | 2016-11-19 15:35 | Progress Note ---
Assessment and Plan - Patient Problems (1) Acute respiratory failure with hypoxemia Current Visit: Yes Status: Acute Plan to address problem: supplemental oxygen, nebs, aspiration precautions, pulmonary toilet, diuretic therapy, pulmonary consulted, wean oxygen as tolerate, monitor Sao2 (2) Recurrent right pleural effusion Current Visit: Yes Status: Acute Plan to address problem: Pulmonary consulted, diuretic therapy, supportive care, treat CHF, (3) CHF exacerbation Current Visit: No Status: Acute Qualifiers: Congestive heart failure type: unspecified congestive heart failure type Qualified Code(s): I50.9 - Heart failure, unspecified Plan to address problem: Cardiology consulted: CHF protocol, fluid restriction, low sodium diet, monitor uop w shift, daily weight, diuretic therapy, continue milrinone drip as per cardiology team. (4) Hypertension Current Visit: No Status: Acute Qualifiers: Hypertension type: H Plan to address problem: monitor bp q shift, continue current care (5) S/P AVR (aortic valve replacement) Current Visit: No Status: Acute Plan to address problem: continue current anticoagulation, (6) DVT prophylaxis Current Visit: Yes Status: Acute History Interval history: Pt resting comfortably sitting in chair, Pt denies pain. reported nursing events overnight. Pt denies CP, Palpitations, NVD. Milrinone drip in place. CXR not improved. Hospitalist Physical - Constitutional Vitals: Temp Pulse Resp BP Pulse Ox 97.4 F L 74 18 124/75 99 11/19/16 09:25 11/19/16 13:00 11/19/16 09:25 11/19/16 13:00 11/19/16 10:00 General appearance: Present: no acute distress - EENT Eyes: Present: PERRL ENT: hearing intact - Neck Neck: Present: supple - Respiratory Respiratory effort: normal Respiratory: bilateral: diminished - Cardiovascular Rhythm: regular Heart Sounds: Present: S1 & S2 - Extremities Extremities: no ischemia Extremity abnormal: edema - Abdominal General gastrointestinal: soft, non-tender, non-distended, no hepatomegaly, no splenomegaly - Integumentary Integumentary: Present: clear, dry - Psychiatric Psychiatric: appropriate mood/affect, cooperative - Neurologic Neurologic: CNII-XII intact Results - Labs CBC & Chem 7: 11/17/16 08:00 11/19/16 10:14 Labs: Laboratory Last Values WBC 5.6 K/mm3 (4.5-11.0) 11/17/16 08:00 RBC 4.84 M/mm3 (3.65-5.03) 11/17/16 08:00 Hgb 11.8 gm/dl (11.8-15.2) 11/17/16 08:00 Hct 38.4 % (35.5-45.6) 11/17/16 08:00 MCV 79 fl (84-94) L 11/17/16 08:00 MCH 24 pg (28-32) L 11/17/16 08:00 MCHC 31 % (32-34) L 11/17/16 08:00 RDW 15.1 % (13.2-15.2) 11/17/16 08:00 Plt Count 183 K/mm3 (140-440) 11/17/16 08:00 Lymph % (Auto) 8.8 % (13.4-35.0) L 11/17/16 08:00 [place] % (Auto) 12.9 % (0.0-7.3) H 11/17/16 08:00 Eos % (Auto) 1.8 % (0.0-4.3) 11/17/16 08:00 Baso % (Auto) 0.5 % (0.0-1.8) 11/17/16 08:00 Lymph # 0.5 K/mm3 (1.2-5.4) L 11/17/16 08:00 [place] # 0.7 K/mm3 (0.0-0.8) 11/17/16 08:00 Eos # 0.1 K/mm3 (0.0-0.4) 11/17/16 08:00 Baso # 0.0 K/mm3 (0.0-0.1) 11/17/16 08:00 Add Manual Diff Complete 11/14/16 06:29 Total Counted 100 11/14/16 06:29 Seg Neutrophils % 76.0 % (40.0-70.0) H 11/17/16 08:00 Seg Neuts % (Manual) 78.0 % (40.0-70.0) H 11/14/16 06:29 Band Neutrophils % 0 % 11/14/16 06:29 Lymphocytes % (Manual) 7.0 % (13.4-35.0) L 11/14/16 06:29 Reactive Lymphs % (Man) 2.0 % 11/14/16 06:29 Monocytes % (Manual) 13.0 % (0.0-7.3) H 11/14/16 06:29 Eosinophils % (Manual) 0 % (0.0-4.3) 11/14/16 06:29 Basophils % (Manual) 0 % (0.0-1.8) 11/14/16 06:29 Metamyelocytes % 0 % 11/14/16 06:29 Myelocytes % 0 % 11/14/16 06:29 Promyelocytes % 0 % 11/14/16 06:29 Blast Cells % 0 % 11/14/16 06:29 Nucleated RBC % Not Reportable 11/14/16 06:29 Seg Neutrophils # 4.2 K/mm3 (1.8-7.7) 11/17/16 08:00 Seg Neutrophils # Man 3.7 K/mm3 (1.8-7.7) 11/14/16 06:29 Band Neutrophils # 0.0 K/mm3 11/14/16 06:29 Lymphocytes # (Manual) 0.3 K/mm3 (1.2-5.4) L 11/14/16 06:29 Abs React Lymphs (Man) 0.1 K/mm3 11/14/16 06:29 Monocytes # (Manual) 0.6 K/mm3 (0.0-0.8) 11/14/16 06:29 Eosinophils # (Manual) 0.0 K/mm3 (0.0-0.4) 11/14/16 06:29 Basophils # (Manual) 0.0 K/mm3 (0.0-0.1) 11/14/16 06:29 Metamyelocytes # 0.0 K/mm3 11/14/16 06:29 Myelocytes # 0.0 K/mm3 11/14/16 06:29 Promyelocytes # 0.0 K/mm3 11/14/16 06:29 Blast Cells # 0.0 K/mm3 11/14/16 06:29 WBC Morphology Not Reportable 11/14/16 06:29 Hypersegmented Neuts Not Reportable 11/14/16 06:29 Hyposegmented Neuts Not Reportable 11/14/16 06:29 Hypogranular Neuts Not Reportable 11/14/16 06:29 Smudge Cells Not Reportable 11/14/16 06:29 Toxic Granulation Not Reportable 11/14/16 06:29 Toxic Vacuolation Not Reportable 11/14/16 06:29 Dohle Bodies Not Reportable 11/14/16 06:29 Pelger-Huet Anomaly Not Reportable 11/14/16 06:29 Cuauhtemoc Rods Not Reportable 11/14/16 06:29 Platelet Estimate Appears normal 11/14/16 06:29 Clumped Platelets Not Reportable 11/14/16 06:29 Plt Clumps, EDTA Not Reportable 11/14/16 06:29 Large Platelets Not Reportable 11/14/16 06:29 Giant Platelets Not Reportable 11/14/16 06:29 Platelet Satelliting Not Reportable 11/14/16 06:29 Plt Morphology Comment Not Reportable 11/14/16 06:29 RBC Morphology Not Reportable 11/14/16 06:29 Dimorphic RBCs Not Reportable 11/14/16 06:29 Polychromasia Few 11/14/16 06:29 Hypochromasia Not Reportable 11/14/16 06:29 Poikilocytosis Not Reportable 11/14/16 06:29 Anisocytosis 1+ 11/14/16 06:29 Microcytosis Not Reportable 11/14/16 06:29 Macrocytosis Not Reportable 11/14/16 06:29 Spherocytes Not Reportable 11/14/16 06:29 Pappenheimer Bodies Not Reportable 11/14/16 06:29 Sickle Cells Not Reportable 11/14/16 06:29 Target Cells Not Reportable 11/14/16 06:29 Tear Drop Cells Not Reportable 11/14/16 06:29 Ovalocytes Few 11/14/16 06:29 Stomatocytes Rare 11/14/16 06:29 Helmet Cells Not Reportable 11/14/16 06:29 [place] Bodies Not Reportable 11/14/16 06:29 [place] Rings Not Reportable 11/14/16 06:29 [place] Cells Not Reportable 11/14/16 06:29 Bite Cells Not Reportable 11/14/16 06:29 Crenated Cell Not Reportable 11/14/16 06:29 Elliptocytes Not Reportable 11/14/16 06:29 Acanthocytes (Spur) Not Reportable 11/14/16 06:29 Rouleaux Not Reportable 11/14/16 06:29 Hemoglobin C Crystals Not Reportable 11/14/16 06:29 Schistocytes Not Reportable 11/14/16 06:29 Malaria parasites Not Reportable 11/14/16 06:29 Rom Bodies Not Reportable 11/14/16 06:29 Hem Pathologist Commnt No 11/14/16 06:29 PT 38.1 Sec. (12.2-14.9) H 11/19/16 05:13 INR 3.84 (0.87-1.13) H 11/19/16 05:13 APTT 36.6 Sec. (24.2-36.6) 11/13/16 12:49 Sodium 135 mmol/L (137-145) L 11/19/16 10:14 Potassium 4.2 mmol/L (3.6-5.0) 11/19/16 10:14 Chloride 91.4 mmol/L (98-107) L 11/19/16 10:14 Carbon Dioxide 32 mmol/L (22-30) H 11/19/16 10:14 Anion Gap 16 mmol/L 11/19/16 10:14 BUN 16 mg/dL (9-20) 11/19/16 10:14 Creatinine 1.1 mg/dL (0.8-1.5) 11/19/16 10:14 Estimated GFR > 60 ml/min 11/19/16 10:14 BUN/Creatinine Ratio 14.54 % 11/19/16 10:14 Glucose 95 mg/dL (75-100) 11/19/16 10:14 Hemoglobin A1c 6.0 % (4-6) 11/13/16 19:09 Calcium 8.4 mg/dL (8.4-10.2) 11/19/16 10:14 Magnesium 1.6 mg/dL (1.7-2.3) L 11/19/16 10:14 Total Bilirubin 0.7 mg/dL (0.1-1.2) 11/17/16 08:00 AST 31 units/L (5-40) 11/17/16 08:00 ALT 12 units/L (7-56) 11/17/16 08:00 Alkaline Phosphatase 66 units/L (35-129) 11/17/16 08:00 Total Creatine Kinase 194 units/L (55-170) H 11/13/16 12:49 CK-MB (CK-2) 4.3 ng/mL (0.0-4.0) H 11/13/16 12:49 CK-MB (CK-2) Rel Index 2.2 (0-4) 11/13/16 12:49 Troponin T < 0.010 ng/mL (0.00-0.029) 11/13/16 12:49 NT-Pro-B Natriuret Pep 2419 pg/mL (0-900) H 11/13/16 12:49 Total Protein 6.3 g/dL (6.3-8.2) 11/17/16 08:00 Albumin 2.6 g/dL (3.9-5) L 11/17/16 08:00 Albumin/Globulin Ratio 0.7 % 11/17/16 08:00 Blood Type B POSITIVE 11/13/16 12:49 Antibody Screen Negative 11/13/16 12:49
[2016-11-19] MEDS: XALATAN 0.005% OD SCH (17:11)
[2016-11-19] MEDS ORDERED: PERCOCET 5/325 PO PRN (23:43)
[2016-11-20] MEDS: AMBIEN PO PRN ×2 (00:23→22:20)
[2016-11-20] MEDS: DILAUDID IV PRN ×4 (03:28→22:22)
[2016-11-20 06:18] LABS: INR 3.51 (0.87-1.13)
[2016-11-20] MEDS: LASIX IV SCH ×2 (07:01→18:06)
[2016-11-20] MEDS: COZAAR PO SCH (10:13)
[2016-11-20] MEDS: ZAROXOLYN PO SCH (10:13)
[2016-11-20] MEDS: K-DUR PO SCH (10:13)
[2016-11-20] MEDS: COREG PO SCH ×2 (10:13→22:21)
[2016-11-20] MEDS: PROTONIX PO SCH (10:13)
[2016-11-20] MEDS: CORDARONE PO SCH ×2 (10:14→22:23)
--- NOTE | 2016-11-20 11:02 | Progress Note ---
Assessment and Plan Pleural effusion CHF exacerbation, systolic Hx of coronary artery disease Hx of predominantly nonischemic cardiomyopathy EF 25-30% on echo 08/2016 Hx of mechanical aortic valve replacement on Coumadin therapy Presence of AICD Pulmonary HTN Atrial flutter and fib on telemetry Pulmonary HTN Frequent NSVT started on po amiodarone Echocardiogram done 08/2016 reports a severe cardiomyopathy, ejection fraction 25-30%, well-functioning mechanical aortic valve, and severe pulmonary hypertension with primary artery systolic pressure 83. Continue medical therapy for systolic heart failure. Strict Is and Os. Daily weights. Subjective Date of service: 11/20/16 Principal diagnosis: CHF Interval history: Still with shortness of breath on exertion. Objective Vital Signs Temp Pulse Pulse Pulse Resp Resp BP 11/20/16 08:01 97.8 F 76 18 11/20/16 07:31 20 11/20/16 07:01 20 11/20/16 06:00 97.7 F 73 20 11/20/16 03:58 22 11/20/16 03:28 22 11/20/16 01:26 98.3 F 68 20 11/20/16 01:22 20 11/20/16 00:22 20 11/19/16 21:56 20 11/19/16 21:30 86 22 20 11/19/16 21:27 77 106/70 11/19/16 21:26 22 11/19/16 20:00 98.4 F 77 21 11/19/16 19:19 77 11/19/16 15:20 97.9 F 70 20 11/19/16 13:00 74 BP Pulse Ox 11/20/16 08:01 129/77 92 11/20/16 07:31 11/20/16 07:01 11/20/16 06:00 109/74 96 11/20/16 03:58 11/20/16 03:28 11/20/16 01:26 110/72 95 11/20/16 01:22 11/20/16 00:22 11/19/16 21:56 11/19/16 21:30 99 11/19/16 21:27 11/19/16 21:26 11/19/16 20:00 106/70 91 11/19/16 19:19 11/19/16 15:20 109/76 99 11/19/16 13:00 124/75 - Physical Examination General: No Apparent Distress HEENT: Positive: PERRL Neck: Positive: trachea midline Neuro: Positive: Grossly Intact Abdomen: Positive: Soft Skin: Positive: Clear Extremities: Present: +1 Edema - Labs and Meds Coagulation 11/20/16 Range/Units 05:29 PT 35.5 H (12.2-14.9) Sec. INR 3.51 H (0.87-1.13) Pacemaker: ventricular pacing w/capt
[2016-11-20 12:40] LABS: Blood Urea Nitrogen 23 mg/dL (9-20); Calcium 8.4 mg/dL (8.4-10.2); Carbon Dioxide 32 mmol/L (22-30); Glucose 131 mg/dL (75-100); Magnesium 1.6 mg/dL (1.7-2.3)
[2016-11-20 12:41] LABS: Anion Gap 17 mmol/L; Chloride 87.3 mmol/L (98-107); Potassium 3.5 mmol/L (3.6-5.0); Sodium 133 mmol/L (137-145)
--- NOTE | 2016-11-20 13:43 | Progress Note ---
Assessment and Plan Congestive heart failure. The patient appears to be slowly improving on current treatment Bilateral pleural effusions. Suspected to be secondary to heart failure process. Some remaining fluid noted on the right side, left side appeared to be clearing up on x-rays done 2 days ago. Anticoagulation Pulmonary hypertension. Most likely combination of group 2/3 Recommendations I will continue gentle diuresis. In view of high INR answer the patient that it is improving, we'll continue with conservative care and if her thoracentesis for the moment If fluid reaccumulation is noted despite treatment then, recommend switching to heparin and performing sonographically guided thoracentesis when INR is adequate , is recommended Before discharge, we recommend the patient should be walked down the hallway to monitor oximeter for additional need of oxygen support. If this is the case, would also recommend overnight oximetry courses the patient has significant pulmonary hypertension Subjective Date of service: 11/20/16 Principal diagnosis: CHF, bilateral pleural effusions Interval history: In general, no respiratory complaints this morning. He denies cough or active expectoration. He has been able to walk out of bed with some assistance. Still on oxygen Objective Vital Signs - 12hr 11/20/16 11/20/16 11/20/16 03:28 03:58 06:00 Temperature 97.7 F Pulse Rate Pulse Rate [ 73 Right Radial] Respiratory 22 22 20 Rate Blood Pressure 109/74 [Right Arm] O2 Sat by Pulse 96 Oximetry 11/20/16 11/20/16 11/20/16 07:01 07:31 08:01 Temperature 97.8 F Pulse Rate Pulse Rate [ 76 Right Radial] Respiratory 20 20 18 Rate Blood Pressure 129/77 [Right Arm] O2 Sat by Pulse 92 Oximetry 11/20/16 10:00 Temperature Pulse Rate 83 Pulse Rate [ Right Radial] Respiratory Rate Blood Pressure [Right Arm] O2 Sat by Pulse Oximetry Constitutional: no acute distress, alert Eyes: non-icteric ENT: oropharynx moist Neck: supple Ascultation: Bilateral: clear (anteriorly), diminished breath sounds (bases) Percussion: Right: dull Cardiovascular: regular rate and rhythm Gastrointestinal: normoactive bowel sounds Extremities: no cyanosis, no edema Neurologic: normal mental status, non-focal exam, CN II-XII normal Psychiatric: mood appropriate CBC and BMP: 11/17/16 08:00 11/20/16 10:42 ABG, PT/INR, D-dimer: PT/INR, D-dimer PT 35.5 Sec. (12.2-14.9) H 11/20/16 05:29 INR 3.51 (0.87-1.13) H 11/20/16 05:29 Abnormal lab findings: Abnormal Labs 11/13/16 11/13/16 11/14/16 19:09 19:09 06:29 RBC 5.24 H 5.05 H MCV 79 L 81 L MCH 25 L 24 L MCHC 31 L 30 L RDW 15.3 H 15.5 H Lymph % (Auto) 11.1 L [place] % (Auto) 12.6 H Lymph # 0.5 L Seg Neutrophils % 74.5 H Seg Neuts % (Manual) 78.0 H Lymphocytes % (Manual) 7.0 L Monocytes % (Manual) 13.0 H Lymphocytes # (Manual) 0.3 L PT INR Sodium 135 L Potassium Chloride 94.9 L Carbon Dioxide BUN Glucose 108 H Calcium 8.2 L Magnesium Albumin 3.0 L 11/14/16 11/14/16 11/15/16 06:29 12:48 05:35 RBC MCV MCH MCHC RDW Lymph % (Auto) [place] % (Auto) Lymph # Seg Neutrophils % Seg Neuts % (Manual) Lymphocytes % (Manual) Monocytes % (Manual) Lymphocytes # (Manual) PT 23.7 H 21.3 H INR 2.11 H 1.85 H Sodium Potassium Chloride Carbon Dioxide BUN Glucose 110 H Calcium Magnesium Albumin 11/16/16 11/16/16 11/17/16 04:48 14:52 05:01 RBC MCV MCH MCHC RDW Lymph % (Auto) [place] % (Auto) Lymph # Seg Neutrophils % Seg Neuts % (Manual) Lymphocytes % (Manual) Monocytes % (Manual) Lymphocytes # (Manual) PT 22.0 H 26.7 H INR 1.92 H 2.45 H Sodium Potassium Chloride 97.3 L Carbon Dioxide BUN Glucose 125 H Calcium 8.0 L Magnesium 1.6 L Albumin 11/17/16 11/17/16 11/18/16 08:00 08:00 06:11 RBC MCV 79 L MCH 24 L MCHC 31 L RDW Lymph % (Auto) 8.8 L [place] % (Auto) 12.9 H Lymph # 0.5 L Seg Neutrophils % 76.0 H Seg Neuts % (Manual) Lymphocytes % (Manual) Monocytes % (Manual) Lymphocytes # (Manual) PT 35.2 H INR 3.47 H Sodium 136 L Potassium Chloride 95.7 L Carbon Dioxide 31 H BUN Glucose 110 H Calcium 8.0 L Magnesium Albumin 2.6 L 11/18/16 11/19/16 11/19/16 13:54 05:13 10:14 RBC MCV MCH MCHC RDW Lymph % (Auto) [place] % (Auto) Lymph # Seg Neutrophils % Seg Neuts % (Manual) Lymphocytes % (Manual) Monocytes % (Manual) Lymphocytes # (Manual) PT 38.1 H INR 3.84 H Sodium 131 L 135 L Potassium Chloride 90.8 L 91.4 L Carbon Dioxide 32 H BUN Glucose 123 H Calcium 8.0 L Magnesium 1.6 L 1.6 L Albumin 11/20/16 11/20/16 05:29 10:42 RBC MCV MCH MCHC RDW Lymph % (Auto) [place] % (Auto) Lymph # Seg Neutrophils % Seg Neuts % (Manual) Lymphocytes % (Manual) Monocytes % (Manual) Lymphocytes # (Manual) PT 35.5 H INR 3.51 H Sodium 133 L Potassium 3.5 L Chloride 87.3 L Carbon Dioxide 32 H BUN 23 H Glucose 131 H Calcium Magnesium 1.6 L Albumin
[2016-11-20] MEDS: COUMADIN PO SCH ×2 (17:07)
--- NOTE | 2016-11-20 17:54 | Progress Note ---
Assessment and Plan - Patient Problems (1) Acute respiratory failure with hypoxemia Current Visit: Yes Status: Acute Plan to address problem: supplemental oxygen, nebs, aspiration precautions, pulmonary toilet, diuretic therapy, pulmonary consulted, wean oxygen as tolerate, monitor Sao2 (2) Recurrent right pleural effusion Current Visit: Yes Status: Acute Plan to address problem: Pulmonary consulted, diuretic therapy, supportive care, treat CHF, (3) CHF exacerbation Current Visit: No Status: Acute Qualifiers: Congestive heart failure type: unspecified congestive heart failure type Qualified Code(s): I50.9 - Heart failure, unspecified Plan to address problem: Cardiology consulted: CHF protocol, fluid restriction, low sodium diet, monitor uop w shift, daily weight, diuretic therapy, continue milrinone drip as per cardiology team. (4) Hypertension Current Visit: No Status: Acute Qualifiers: Hypertension type: H Plan to address problem: monitor bp q shift, continue current care (5) S/P AVR (aortic valve replacement) Current Visit: No Status: Acute Plan to address problem: continue current anticoagulation, (6) DVT prophylaxis Current Visit: Yes Status: Acute History Interval history: Pt resting comfortably sitting in chair, Pt denies pain. reported nursing events overnight. Pt denies CP, Palpitations, NVD. Milrinone drip in place. CXR not improved. Hospitalist Physical - Constitutional Vitals: Temp Pulse Resp BP Pulse Ox 97.8 F 76 18 107/71 98 11/20/16 16:06 11/20/16 16:06 11/20/16 16:06 11/20/16 16:06 11/20/16 16:06 General appearance: Present: no acute distress - EENT Eyes: Present: PERRL ENT: hearing intact - Neck Neck: Present: supple - Respiratory Respiratory: bilateral: diminished - Cardiovascular Rhythm: regular Heart Sounds: Present: S1 & S2 - Extremities Extremities: no ischemia Extremity abnormal: edema - Abdominal General gastrointestinal: soft, non-tender, non-distended - Integumentary Integumentary: Present: clear, dry - Psychiatric Psychiatric: appropriate mood/affect, cooperative - Neurologic Neurologic: CNII-XII intact Results - Labs CBC & Chem 7: 11/17/16 08:00 11/20/16 10:42 Labs: Laboratory Last Values WBC 5.6 K/mm3 (4.5-11.0) 11/17/16 08:00 RBC 4.84 M/mm3 (3.65-5.03) 11/17/16 08:00 Hgb 11.8 gm/dl (11.8-15.2) 11/17/16 08:00 Hct 38.4 % (35.5-45.6) 11/17/16 08:00 MCV 79 fl (84-94) L 11/17/16 08:00 MCH 24 pg (28-32) L 11/17/16 08:00 MCHC 31 % (32-34) L 11/17/16 08:00 RDW 15.1 % (13.2-15.2) 11/17/16 08:00 Plt Count 183 K/mm3 (140-440) 11/17/16 08:00 Lymph % (Auto) 8.8 % (13.4-35.0) L 11/17/16 08:00 [place] % (Auto) 12.9 % (0.0-7.3) H 11/17/16 08:00 Eos % (Auto) 1.8 % (0.0-4.3) 11/17/16 08:00 Baso % (Auto) 0.5 % (0.0-1.8) 11/17/16 08:00 Lymph # 0.5 K/mm3 (1.2-5.4) L 11/17/16 08:00 [place] # 0.7 K/mm3 (0.0-0.8) 11/17/16 08:00 Eos # 0.1 K/mm3 (0.0-0.4) 11/17/16 08:00 Baso # 0.0 K/mm3 (0.0-0.1) 11/17/16 08:00 Add Manual Diff Complete 11/14/16 06:29 Total Counted 100 11/14/16 06:29 Seg Neutrophils % 76.0 % (40.0-70.0) H 11/17/16 08:00 Seg Neuts % (Manual) 78.0 % (40.0-70.0) H 11/14/16 06:29 Band Neutrophils % 0 % 11/14/16 06:29 Lymphocytes % (Manual) 7.0 % (13.4-35.0) L 11/14/16 06:29 Reactive Lymphs % (Man) 2.0 % 11/14/16 06:29 Monocytes % (Manual) 13.0 % (0.0-7.3) H 11/14/16 06:29 Eosinophils % (Manual) 0 % (0.0-4.3) 11/14/16 06:29 Basophils % (Manual) 0 % (0.0-1.8) 11/14/16 06:29 Metamyelocytes % 0 % 11/14/16 06:29 Myelocytes % 0 % 11/14/16 06:29 Promyelocytes % 0 % 11/14/16 06:29 Blast Cells % 0 % 11/14/16 06:29 Nucleated RBC % Not Reportable 11/14/16 06:29 Seg Neutrophils # 4.2 K/mm3 (1.8-7.7) 11/17/16 08:00 Seg Neutrophils # Man 3.7 K/mm3 (1.8-7.7) 11/14/16 06:29 Band Neutrophils # 0.0 K/mm3 11/14/16 06:29 Lymphocytes # (Manual) 0.3 K/mm3 (1.2-5.4) L 11/14/16 06:29 Abs React Lymphs (Man) 0.1 K/mm3 11/14/16 06:29 Monocytes # (Manual) 0.6 K/mm3 (0.0-0.8) 11/14/16 06:29 Eosinophils # (Manual) 0.0 K/mm3 (0.0-0.4) 11/14/16 06:29 Basophils # (Manual) 0.0 K/mm3 (0.0-0.1) 11/14/16 06:29 Metamyelocytes # 0.0 K/mm3 11/14/16 06:29 Myelocytes # 0.0 K/mm3 11/14/16 06:29 Promyelocytes # 0.0 K/mm3 11/14/16 06:29 Blast Cells # 0.0 K/mm3 11/14/16 06:29 WBC Morphology Not Reportable 11/14/16 06:29 Hypersegmented Neuts Not Reportable 11/14/16 06:29 Hyposegmented Neuts Not Reportable 11/14/16 06:29 Hypogranular Neuts Not Reportable 11/14/16 06:29 Smudge Cells Not Reportable 11/14/16 06:29 Toxic Granulation Not Reportable 11/14/16 06:29 Toxic Vacuolation Not Reportable 11/14/16 06:29 Dohle Bodies Not Reportable 11/14/16 06:29 Pelger-Huet Anomaly Not Reportable 11/14/16 06:29 Cuauhtemoc Rods Not Reportable 11/14/16 06:29 Platelet Estimate Appears normal 11/14/16 06:29 Clumped Platelets Not Reportable 11/14/16 06:29 Plt Clumps, EDTA Not Reportable 11/14/16 06:29 Large Platelets Not Reportable 11/14/16 06:29 Giant Platelets Not Reportable 11/14/16 06:29 Platelet Satelliting Not Reportable 11/14/16 06:29 Plt Morphology Comment Not Reportable 11/14/16 06:29 RBC Morphology Not Reportable 11/14/16 06:29 Dimorphic RBCs Not Reportable 11/14/16 06:29 Polychromasia Few 11/14/16 06:29 Hypochromasia Not Reportable 11/14/16 06:29 Poikilocytosis Not Reportable 11/14/16 06:29 Anisocytosis 1+ 11/14/16 06:29 Microcytosis Not Reportable 11/14/16 06:29 Macrocytosis Not Reportable 11/14/16 06:29 Spherocytes Not Reportable 11/14/16 06:29 Pappenheimer Bodies Not Reportable 11/14/16 06:29 Sickle Cells Not Reportable 11/14/16 06:29 Target Cells Not Reportable 11/14/16 06:29 Tear Drop Cells Not Reportable 11/14/16 06:29 Ovalocytes Few 11/14/16 06:29 Stomatocytes Rare 11/14/16 06:29 Helmet Cells Not Reportable 11/14/16 06:29 [place] Bodies Not Reportable 11/14/16 06:29 [place] Rings Not Reportable 11/14/16 06:29 [place] Cells Not Reportable 11/14/16 06:29 Bite Cells Not Reportable 11/14/16 06:29 Crenated Cell Not Reportable 11/14/16 06:29 Elliptocytes Not Reportable 11/14/16 06:29 Acanthocytes (Spur) Not Reportable 11/14/16 06:29 Rouleaux Not Reportable 11/14/16 06:29 Hemoglobin C Crystals Not Reportable 11/14/16 06:29 Schistocytes Not Reportable 11/14/16 06:29 Malaria parasites Not Reportable 11/14/16 06:29 Rom Bodies Not Reportable 11/14/16 06:29 Hem Pathologist Commnt No 11/14/16 06:29 PT 35.5 Sec. (12.2-14.9) H 11/20/16 05:29 INR 3.51 (0.87-1.13) H 11/20/16 05:29 APTT 36.6 Sec. (24.2-36.6) 11/13/16 12:49 Sodium 133 mmol/L (137-145) L 11/20/16 10:42 Potassium 3.5 mmol/L (3.6-5.0) L 11/20/16 10:42 Chloride 87.3 mmol/L (98-107) L 11/20/16 10:42 Carbon Dioxide 32 mmol/L (22-30) H 11/20/16 10:42 Anion Gap 17 mmol/L 11/20/16 10:42 BUN 23 mg/dL (9-20) H 11/20/16 10:42 Creatinine 1.1 mg/dL (0.8-1.5) 11/20/16 10:42 Estimated GFR > 60 ml/min 11/20/16 10:42 BUN/Creatinine Ratio 20.90 % 11/20/16 10:42 Glucose 131 mg/dL (75-100) H 11/20/16 10:42 Hemoglobin A1c 6.0 % (4-6) 11/13/16 19:09 Calcium 8.4 mg/dL (8.4-10.2) 11/20/16 10:42 Magnesium 1.6 mg/dL (1.7-2.3) L 11/20/16 10:42 Total Bilirubin 0.7 mg/dL (0.1-1.2) 11/17/16 08:00 AST 31 units/L (5-40) 11/17/16 08:00 ALT 12 units/L (7-56) 11/17/16 08:00 Alkaline Phosphatase 66 units/L (35-129) 11/17/16 08:00 Total Creatine Kinase 194 units/L (55-170) H 11/13/16 12:49 CK-MB (CK-2) 4.3 ng/mL (0.0-4.0) H 11/13/16 12:49 CK-MB (CK-2) Rel Index 2.2 (0-4) 11/13/16 12:49 Troponin T < 0.010 ng/mL (0.00-0.029) 11/13/16 12:49 NT-Pro-B Natriuret Pep 2419 pg/mL (0-900) H 11/13/16 12:49 Total Protein 6.3 g/dL (6.3-8.2) 11/17/16 08:00 Albumin 2.6 g/dL (3.9-5) L 11/17/16 08:00 Albumin/Globulin Ratio 0.7 % 11/17/16 08:00 Blood Type B POSITIVE 11/13/16 12:49 Antibody Screen Negative 11/13/16 12:49
[2016-11-20] MEDS: XALATAN 0.005% OD SCH (18:06)
[2016-11-21 05:49] LABS: INR 2.39 (0.87-1.13)
[2016-11-21] MEDS: LASIX IV SCH (06:05)
[2016-11-21 08:36] LABS: Anion Gap 15 mmol/L; Blood Urea Nitrogen 26 mg/dL (9-20); Carbon Dioxide 33 mmol/L (22-30); Chloride 91.1 mmol/L (98-107); Glucose 106 mg/dL (75-100); Magnesium 1.7 mg/dL (1.7-2.3); Potassium 3.4 mmol/L (3.6-5.0); Sodium 136 mmol/L (137-145)
[2016-11-21] MEDS: K-DUR PO SCH (10:14)
[2016-11-21] MEDS: PROTONIX PO SCH (10:14)
[2016-11-21] MEDS: CORDARONE PO SCH (10:14)
[2016-11-21] MEDS: ZAROXOLYN PO SCH (10:14)
--- NOTE | 2016-11-21 10:15 | Progress Note ---
Assessment and Plan Pleural effusion CHF exacerbation, systolic Hx of coronary artery disease Hx of predominantly nonischemic cardiomyopathy EF 25-30% on echo 08/2016 Hx of mechanical aortic valve replacement on Coumadin therapy Presence of AICD Pulmonary HTN Atrial flutter and fib on telemetry Pulmonary HTN Frequent NSVT started on po amiodarone Echocardiogram done 08/2016 reports a severe cardiomyopathy, ejection fraction 25-30%, well-functioning mechanical aortic valve, and severe pulmonary hypertension with primary artery systolic pressure 83. Continue medical therapy for systolic heart failure and underlying coronary disease. The patient is stable for discharge from a cardiac standpoint. Outpatient follow up and INR check as scheduled with Dr Farris. Subjective Date of service: 11/21/16 Principal diagnosis: CHF, bilateral pleural effusions Interval history: Patient has no complaints. Objective Vital Signs Temp Pulse Pulse Pulse Pulse Pulse Resp 11/21/16 07:38 98.2 F 76 18 11/21/16 04:30 98.4 F 74 22 11/21/16 01:08 97.5 F L 74 22 11/20/16 22:21 70 11/20/16 22:00 74 20 11/20/16 20:30 97.2 F L 70 22 11/20/16 18:28 98 H 11/20/16 16:06 97.8 F 76 18 BP BP BP Pulse Ox 11/21/16 07:38 112/65 93 11/21/16 04:30 117/82 100 11/21/16 01:08 110/68 99 11/20/16 22:21 107/58 11/20/16 22:00 11/20/16 20:30 107/58 96 11/20/16 18:28 170/112 162/110 11/20/16 16:06 107/71 98 - Physical Examination General: No Apparent Distress HEENT: Positive: PERRL Neck: Positive: trachea midline Cardiac: Positive: Other (paced) Lungs: Positive: Decreased Breath Sounds Neuro: Positive: Grossly Intact Extremities: Present: +1 Edema - Labs and Meds Coagulation 11/21/16 Range/Units 04:49 PT 26.2 H (12.2-14.9) Sec. INR 2.39 H (0.87-1.13) Comprehensive Metabolic Panel 11/20/16 11/21/16 Range/Units 10:42 07:53 Sodium 133 L 136 L (137-145) mmol/L Potassium 3.5 L 3.4 L (3.6-5.0) mmol/L Chloride 87.3 L 91.1 L (98-107) mmol/L Carbon Dioxide 32 H 33 H (22-30) mmol/L BUN 23 H 26 H (9-20) mg/dL Creatinine 1.1 1.3 (0.8-1.5) mg/dL Glucose 131 H 106 H (75-100) mg/dL Calcium 8.4 8.0 L (8.4-10.2) mg/dL Pacemaker: ventricular pacing w/capt
[2016-11-21] MEDS: COREG PO SCH (10:16)
[2016-11-21] MEDS: COZAAR PO SCH (10:39)
[2016-11-21 11:23] VITALS: BP 112/69
--- NOTE | 2016-11-21 12:25 | Progress Note ---
Assessment and Plan Congestive heart failure. We'll can on the hallway with no limitation. His oximetry reportedly was normal on room air Bilateral pleural effusions. Suspected to be secondary to heart failure process. Clinically improved Anticoagulation Pulmonary hypertension. Most likely combination of group 2/3 Recommendations I will continue gentle diuresis. CHF management per cardiology recommendations We'll See the patient in 2-3 weeks at the office for follow-up x-ray evaluation and respiratory monitoring Discussed with patient. We'll sign off Subjective Date of service: 11/21/16 Principal diagnosis: CHF, bilateral pleural effusions Interval history: Able to walk around without any limitation. No shortness of breath orthopnea or chest pain Objective Vital Signs - 12hr 11/21/16 11/21/16 11/21/16 01:08 04:30 07:38 Temperature 97.5 F L 98.4 F 98.2 F Pulse Rate Pulse Rate [ 74 74 From Monitor] Pulse Rate [ 76 Left Radial] Respiratory 22 22 18 Rate Blood Pressure Blood Pressure 112/65 [Left Arm] Blood Pressure 110/68 117/82 [Right Arm] O2 Sat by Pulse 99 100 93 Oximetry 11/21/16 11/21/16 11/21/16 10:16 10:39 11:21 Temperature 98.6 F Pulse Rate 76 76 Pulse Rate [ From Monitor] Pulse Rate [ 69 Left Radial] Respiratory 18 Rate Blood Pressure 112/65 Blood Pressure 112/69 [Left Arm] Blood Pressure [Right Arm] O2 Sat by Pulse 100 Oximetry Constitutional: no acute distress, alert Eyes: non-icteric ENT: oropharynx moist Neck: supple Ascultation: Bilateral: clear (anteriorly), diminished breath sounds (right base mild) Percussion: Right: dull Cardiovascular: regular rate and rhythm Gastrointestinal: normoactive bowel sounds Extremities: no cyanosis, no edema Neurologic: normal mental status, non-focal exam, CN II-XII normal Psychiatric: mood appropriate CBC and BMP: 11/17/16 08:00 11/21/16 07:53 ABG, PT/INR, D-dimer: PT/INR, D-dimer PT 26.2 Sec. (12.2-14.9) H 11/21/16 04:49 INR 2.39 (0.87-1.13) H 11/21/16 04:49 Abnormal lab findings: Abnormal Labs 02/11/13/16 11/14/16 19:09 19:09 06:29 RBC 5.24 H 5.05 H MCV 79 L 81 L MCH 25 L 24 L MCHC 31 L 30 L RDW 15.3 H 15.5 H Lymph % (Auto) 11.1 L [place] % (Auto) 12.6 H Lymph # 0.5 L Seg Neutrophils % 74.5 H Seg Neuts % (Manual) 78.0 H Lymphocytes % (Manual) 7.0 L Monocytes % (Manual) 13.0 H Lymphocytes # (Manual) 0.3 L PT INR Sodium 135 L Potassium Chloride 94.9 L Carbon Dioxide BUN Glucose 108 H Calcium 8.2 L Magnesium Albumin 3.0 L 11/14/16 11/14/16 11/15/16 06:29 12:48 05:35 RBC MCV MCH MCHC RDW Lymph % (Auto) [place] % (Auto) Lymph # Seg Neutrophils % Seg Neuts % (Manual) Lymphocytes % (Manual) Monocytes % (Manual) Lymphocytes # (Manual) PT 23.7 H 21.3 H INR 2.11 H 1.85 H Sodium Potassium Chloride Carbon Dioxide BUN Glucose 110 H Calcium Magnesium Albumin 11/16/16 11/16/16 11/17/16 04:48 14:52 05:01 RBC MCV MCH MCHC RDW Lymph % (Auto) [place] % (Auto) Lymph # Seg Neutrophils % Seg Neuts % (Manual) Lymphocytes % (Manual) Monocytes % (Manual) Lymphocytes # (Manual) PT 22.0 H 26.7 H INR 1.92 H 2.45 H Sodium Potassium Chloride 97.3 L Carbon Dioxide BUN Glucose 125 H Calcium 8.0 L Magnesium 1.6 L Albumin 11/17/16 11/17/16 11/18/16 08:00 08:00 06:11 RBC MCV 79 L MCH 24 L MCHC 31 L RDW Lymph % (Auto) 8.8 L [place] % (Auto) 12.9 H Lymph # 0.5 L Seg Neutrophils % 76.0 H Seg Neuts % (Manual) Lymphocytes % (Manual) Monocytes % (Manual) Lymphocytes # (Manual) PT 35.2 H INR 3.47 H Sodium 136 L Potassium Chloride 95.7 L Carbon Dioxide 31 H BUN Glucose 110 H Calcium 8.0 L Magnesium Albumin 2.6 L 11/18/16 11/19/16 11/19/16 13:54 05:13 10:14 RBC MCV MCH MCHC RDW Lymph % (Auto) [place] % (Auto) Lymph # Seg Neutrophils % Seg Neuts % (Manual) Lymphocytes % (Manual) Monocytes % (Manual) Lymphocytes # (Manual) PT 38.1 H INR 3.84 H Sodium 131 L 135 L Potassium Chloride 90.8 L 91.4 L Carbon Dioxide 32 H BUN Glucose 123 H Calcium 8.0 L Magnesium 1.6 L 1.6 L Albumin 11/20/16 11/20/16 11/21/16 05:29 10:42 04:49 RBC MCV MCH MCHC RDW Lymph % (Auto) [place] % (Auto) Lymph # Seg Neutrophils % Seg Neuts % (Manual) Lymphocytes % (Manual) Monocytes % (Manual) Lymphocytes # (Manual) PT 35.5 H 26.2 H INR 3.51 H 2.39 H Sodium 133 L Potassium 3.5 L Chloride 87.3 L Carbon Dioxide 32 H BUN 23 H Glucose 131 H Calcium Magnesium 1.6 L Albumin 11/21/16 07:53 RBC MCV MCH MCHC RDW Lymph % (Auto) [place] % (Auto) Lymph # Seg Neutrophils % Seg Neuts % (Manual) Lymphocytes % (Manual) Monocytes % (Manual) Lymphocytes # (Manual) PT INR Sodium 136 L Potassium 3.4 L Chloride 91.1 L Carbon Dioxide 33 H BUN 26 H Glucose 106 H Calcium 8.0 L Magnesium Albumin
--- NOTE | 2016-11-21 13:01 | Discharge Summary ---
Providers - Providers Date of Admission: 11/13/16 16:10 Date of discharge: 11/21/16 Attending physician: HAROON GARCIA MD 11/13/16 18:25 Consult to Physician [CONS] Routine Consulting Provider: MARTHA MADDEN Reason For Exam: CHF Place consult to:: Dr. Madden...Dr. Mary Jimenez Notified:: Answering Service Phone number called:: [phone] 11/14/16 10:51 Consult to Physician [CONS] Routine Consulting Provider: TRISTAN GALARZA Reason For Exam: gi bleed Place consult to:: gi/ Notified:: OFFICE Phone number called:: [phone] Was contact made?: Yes If yes, spoke with:: TAIWO Garcia called:: 11:24 Comment:: NELIDA NOTIFIED 11/14/16 11:50 Consult to Physician [CONS] Routine Consulting Provider: FANNY FOWLER Reason For Exam: pleural effusion Place consult to:: DR. FOWLER Notified:: DR. FOWLER Phone number called:: IN HOUSE Was contact made?: Yes If yes, spoke with:: DR. FOWLER Time called:: 12:17 Comment:: NELIDA NOTIFIED Primary care physician: ALBANIA ULLOA Hospitalization Reason for admission: Pleural effusion Condition: Stable Hospital course: Patient was admitted to the floor after he was referred from cardiology clinic for hypoxemia. At presentation patient has bilateral pleural effusion more on the right side, acute on chronic systolic CHF exacerbation, hypoxic respiratory failure. Patient was appropriately treated for the above conditions and discharged. At the time of discharge patient was stable saturating in the upper 90s on room air. Patient has follow-up appointment After discharge at the cardiology clinic. He will follow his INR over there and he will get his medications there. Disposition: DISCHARGED TO HOME OR SELFCARE Time spent for discharge: 31 minutes - Discharge Diagnoses (1) Acute respiratory failure with hypoxemia Status: Acute (2) Pleural effusion, right Status: Acute (3) CAD (coronary atherosclerotic disease) Status: Acute Qualifiers: Coronary Disease-Associated Artery/Lesion type: C [place] vs. transplanted heart: N Associated angina: A (4) CHF (congestive heart failure), NYHA class II Status: Acute Qualifiers: Congestive heart failure type: C Congestive heart failure chronicity: C Core Measure Documentation - Palliative Care Palliative Care/ Comfort Measures: Not Applicable - Core Measures Any of the following diagnoses?: none Exam - Physical Exam Narrative exam: Not in cardiopulmonary distress. The patient appeared well nourished and normally developed. Vital signs as documented. Head exam is unremarkable. No scleral icterus . Neck is without jugular venous distension, thyromegaly, or carotid bruits. Lungs are clear to auscultation. Cardiac exam reveals regular rate and Rhythm. First and second heart sounds normal. No murmurs, rubs or gallops. Abdominal exam reveals normal bowel sounds, no masses, no organomegaly and no aortic enlargement. Extremities are nonedematous and both femoral and pedal pulses are normal. PATTERN FINISHER: Alert and oriented 3. No focal weakness. - Constitutional Vitals: Temp Pulse Resp BP Pulse Ox 98.6 F 69 18 112/69 100 11/21/16 11:21 11/21/16 11:21 11/21/16 11:21 11/21/16 11:21 11/21/16 11:21 Plan Activity: no restrictions Weight Bearing Status: Full Weight Bearing Diet: low cholesterol, low salt Follow up with: ALBANIA ULLOA MD [Primary Care Provider] - 7 Days Forms: Accompanied Note, Warfarin Discharge Instruction
[2016-11-21] MEDS ORDERED: COUMADIN PO SCH (17:00)
== END 2016-11-21 13:56 | disposition home or self-care (01) | DRG 291 ==
LOC: ED 11:07 → 3A 16:10 → CC1 11-15 13:32 → 4A 11-17 18:01
PROVIDERS: ADMIT Internal Medicine; ATTEND Internal Medicine
PROC: 5A09357 Assistance with Respiratory Ventilation, Less than 24 Consecutive Hours, Continuous Positive Airway Pressure (ICD-10-PCS; principal; 2016-11-15)
DX: I11.0 Hypertensive heart disease with heart failure (principal); J96.01 Acute respiratory failure with hypoxia; K92.2 Gastrointestinal hemorrhage, unspecified; I48.92 Unspecified atrial flutter; J90 Pleural effusion, not elsewhere classified; I50.23 Acute on chronic systolic (congestive) heart failure; I27.2 Other secondary pulmonary hypertension; I48.91 Unspecified atrial fibrillation; I42.9 Cardiomyopathy, unspecified; I25.10 Atherosclerotic heart disease of native coronary artery without angina pectoris; Z79.01 Long term (current) use of anticoagulants; Z95.2 Presence of prosthetic heart valve; Z95.5 Presence of coronary angioplasty implant and graft; Z88.1 Allergy status to other antibiotic agents; Z95.810 Presence of automatic (implantable) cardiac defibrillator; Z23 Encounter for immunization; Z82.49 Family history of ischemic heart disease and other diseases of the circulatory system
CPT/HCPCS: 36415; 71010; 71020; 80048; 80053; 82550; 82553; 83036; 83735; 83880; 84484; 85007; 85025; 85610; 85730; 86850; 86900; 86901; 90686; 90732; 94760; 96374; J1170; J1940; J2260

== ENCOUNTER 2017-01-30 08:53 | Outpatient (CLI) | payer MEDICARE ==
[2017-01-30 09:15] LABS: Hematocrit 37.7 % (35.5-45.6); Hemoglobin 11.9 gm/dl (11.8-15.2); Mean Corpuscular HGB Conc 32 % (32-34); Mean Corpuscular Volume 80 fl (84-94); Platelet Count 176 K/mm3 (140-440); Red Blood Count 4.68 M/mm3 (3.65-5.03); Red Cell Distribution Width 15.7 % (13.2-15.2); White Blood Count 6.6 K/mm3 (4.5-11.0)
[2017-01-30 09:37] LABS: Mean Corpuscular Hemoglobin 25 pg (28-32)
[2017-01-30 10:13] LABS: INR 1.47 (0.87-1.13)
[2017-01-30] MEDS ORDERED: NACL ONE (11:19)
[2017-01-30 11:45] LABS: Anion Gap 17 mmol/L; BUN/Creatinine Ratio 24.16; Blood Urea Nitrogen 29 mg/dL (9-20); Calcium 9.2 mg/dL (8.4-10.2); Carbon Dioxide 30 mmol/L (22-30); Chloride 90.4 mmol/L (98-107); Glucose 108 mg/dL (75-100); Sodium 133 mmol/L (137-145)
--- NOTE | 2017-01-31 10:59 | Cat Scan Report ---
CT of the abdomen and pelvis with IV and oral contrast. History: GI bleeding. Findings: There are bilateral pleural effusions, larger on the right. The right effusion is partially loculated and demonstrates a heterogeneous density pattern consistent with complex fluid or scarring. There is bibasilar subsegmental atelectasis. The heart is enlarged. The liver, spleen, and pancreas are unremarkable. The kidneys are normal in size and configuration with no evidence of mass or hydronephrosis. There is no retroperitoneal adenopathy. There no pelvic masses or abnormal fluid collections. No mesenteric inflammation is seen. There is no radiographic evidence of appendicitis. Impression: 1. No significant findings within the abdomen or pelvis. 2. Bilateral pleural fluid and/or pleural scarring with evidence of complex fluid on the right. Bibasilar atelectasis is also noted.
== END 2017-01-30 08:54 | disposition home or self-care (01) ==
LOC: CT 08:53
DX: K80.00 Calculus of gallbladder with acute cholecystitis without obstruction (principal); I51.7 Cardiomegaly; J90 Pleural effusion, not elsewhere classified; J98.11 Atelectasis; Z87.820 Personal history of traumatic brain injury
CPT/HCPCS: 36415; 74177; 80048; 85027; 85610; 85730; Q9967

== ENCOUNTER 2017-02-08 09:57 | Outpatient (CLI) | payer MEDICARE ==
--- NOTE | 2017-02-08 15:43 | Ultrasound Report ---
RIGHT UPPER QUADRANT ULTRASOUND: HISTORY: Right upper quadrant abdominal pain. Technique: Transabdominal ultrasound imaging with Doppler interrogation. FINDINGS: There is diffuse pattern small stones in the gallbladder and a small amount of sludge. No evidence for abnormal dilatation, wall thickening or surrounding fluid. The CBD measures 4 mm. Images of the liver parenchyma, pancreas, right kidney and aorta are within normal limits. No perihepatic ascites. IMPRESSION: Cholelithiasis.
== END 2017-02-08 09:58 | disposition home or self-care (01) ==
LOC: US 09:57
PROVIDERS: ATTEND Surgery
DX: K80.00 Calculus of gallbladder with acute cholecystitis without obstruction (principal)
CPT/HCPCS: 76705